=== PATIENT | female | born 1930 | race African-American/Black ===

== ENCOUNTER → 2016-05-21 | Outpatient (CLI) | payer OTHER ==
[2013-10-26 13:30] VITALS: BP 138/66
[2016-05-21 16:00] LABS: BASOPHILS # (AUTO) 0.1 X10^3/uL (0.0-0.1); BASOPHILS % (AUTO) 0.8 % (0.2-1.0); EOSINOPHILS # (AUTO) 0.1 x10^3/uL (0.0-0.2); EOSINOPHILS % (AUTO) 1.5 % (0.9-2.9); HEMATOCRIT 33.2 % (36.0-47.0); HEMOGLOBIN 10.8 g/dL (12.0-16.0); LYMPHOCYTES # (AUTO) 3.8 X10^3/uL (1.3-2.9); LYMPHOCYTES % (AUTO) 46.3 % (21.0-51.0); MEAN CORPUSCULAR HEMOGLOBIN 29.1 pg (27.0-34.0); MEAN CORPUSCULAR HGB CONC 32.6 g/dL (33.0-35.0); MEAN CORPUSCULAR VOLUME 89.1 fL (80.0-100.0); MEAN PLATELET VOLUME 7.9 fL (7.4-11.0); MONOCYTES # (AUTO) 0.7 x10^3/uL (0.3-0.8); MONOCYTES % (AUTO) 8.7 % (0.0-13.0); NEUTROPHILS # (AUTO) 3.5 x10^3/uL (2.2-4.8); NEUTROPHILS % (AUTO) 42.7 % (42.0-75.0); PLATELET COUNT 223 X10^3/uL (150.0-450.0); RED BLOOD COUNT 3.72 X10^6/uL (3.5-5.4); RED CELL DISTRIBUTION WIDTH 12.6 % (11.6-16.5); WHITE BLOOD COUNT 8.3 X10^3/uL (3.6-10.0)
[2016-05-21 16:18] LABS: ALBUMIN 3.9 g/dL (3.4-5.0); BLOOD UREA NITROGEN 32 mg/dL (7-18); CARBON DIOXIDE 23.9 mmol/L (21-32); CHLORIDE 109 mmol/L (98-107); CHOL/HDL RATIO 3.8 (0.0-5.0); CHOLESTEROL 129 mg/dL (0-200); CREATININE 2.53 mg/dL (0.55-1.02); GLUCOSE 84 mg/dL (65-99); HDL CHOLESTEROL 34 mg/dL (40-60); PHOSPHORUS 4.3 mg/dL (2.6-4.7); SODIUM 145 mmol/L (136-145); TRIGLYCERIDES 129 mg/dL (0-150); eGFR BLACK RACES 23 (>60); eGFR NON BLACK RACES 19 (>60)
== END ==
LOC: LAB 15:28
PROVIDERS: ATTEND Internal Medicine
DX: I12.9 Hypertensive chronic kidney disease with stage 1 through stage 4 chronic kidney disease, or unspecified chronic kidney disease (principal); N18.4 Chronic kidney disease, stage 4 (severe)
CPT/HCPCS: 36415; 80061; 80069; 85025

== ENCOUNTER → 2016-08-06 | Outpatient (CLI) | payer OTHER ==
[2013-10-26 13:30] VITALS: BP 138/66
[2016-08-06 14:21] LABS: ALBUMIN 3.6 g/dL (3.4-5.0); BLOOD UREA NITROGEN 29 mg/dL (7-18); CALCIUM 9.3 mg/dL (8.5-10.1); CARBON DIOXIDE 24.9 mmol/L (21-32); CHLORIDE 107 mmol/L (98-107); CREATININE 2.62 mg/dL (0.55-1.02); GLUCOSE 92 mg/dL (65-99); PHOSPHORUS 4.1 mg/dL (2.6-4.7); SODIUM 143 mmol/L (136-145); URIC ACID 6.6 mg/dL (2.6-6.0); eGFR BLACK RACES 22 (>60); eGFR NON BLACK RACES 18 (>60)
== END ==
LOC: LAB 13:43
PROVIDERS: ATTEND Internal Medicine
DX: I12.9 Hypertensive chronic kidney disease with stage 1 through stage 4 chronic kidney disease, or unspecified chronic kidney disease (principal); N18.4 Chronic kidney disease, stage 4 (severe); N28.89 Other specified disorders of kidney and ureter
CPT/HCPCS: 36415; 80069; 84550

== ENCOUNTER 2016-09-20 07:55 | Day surgery (SDC) | payer OTHER ==
[2016-09-20] MEDS ORDERED: D5 LR 1000 ML 1,000 ML IV ONE (08:08)
[2016-09-20] MEDS ORDERED: DIPRIVAN VIAL 20 ML ONE (09:59)
[2016-09-20 10:36] VITALS: BP 122/64
== END 2016-09-20 10:36 | disposition home or self-care (01) ==
LOC: SURG1 07:55
PROVIDERS: ATTEND Internal Medicine Gastroenterology
PROC: 0DB68ZX Excision of Stomach, Via Natural or Artificial Opening Endoscopic, Diagnostic (ICD-10-PCS; principal; 2016-09-20 09:45)
PROC: 0DJ08ZZ Inspection of Upper Intestinal Tract, Via Natural or Artificial Opening Endoscopic (ICD-10-PCS; principal; 2016-09-20 09:45)
PROC: 0D757ZZ Dilation of Esophagus, Via Natural or Artificial Opening (ICD-10-PCS; principal; 2016-09-20 09:45)
DX: R13.19 Other dysphagia (principal); R10.13 Epigastric pain; K21.9 Gastro-esophageal reflux disease without esophagitis; K22.4 Dyskinesia of esophagus; K22.2 Esophageal obstruction; K44.9 Diaphragmatic hernia without obstruction or gangrene; K29.60 Other gastritis without bleeding
CPT/HCPCS: 99100; A4217; J3490; J7120

== ENCOUNTER → 2016-10-02 | Outpatient (CLI) | payer OTHER ==
[2016-09-20 10:36] VITALS: BP 122/64
[2016-10-02 09:24] LABS: BASOPHILS # (AUTO) 0.1 X10^3/uL (0.0-0.1); BASOPHILS % (AUTO) 0.9 % (0.2-1.0); EOSINOPHILS # (AUTO) 0.1 x10^3/uL (0.0-0.2); EOSINOPHILS % (AUTO) 2.1 % (0.9-2.9); HEMATOCRIT 32.3 % (36.0-47.0); HEMOGLOBIN 10.7 g/dL (12.0-16.0); LYMPHOCYTES % (AUTO) 46.7 % (21.0-51.0); MEAN CORPUSCULAR HEMOGLOBIN 29.5 pg (27.0-34.0); MEAN CORPUSCULAR HGB CONC 33.1 g/dL (33.0-35.0); MEAN CORPUSCULAR VOLUME 89.1 fL (80.0-100.0); MEAN PLATELET VOLUME 8.1 fL (7.4-11.0); MONOCYTES # (AUTO) 0.6 x10^3/uL (0.3-0.8); MONOCYTES % (AUTO) 9.9 % (0.0-13.0); NEUTROPHILS # (AUTO) 2.6 x10^3/uL (2.2-4.8); NEUTROPHILS % (AUTO) 40.4 % (42.0-75.0); PLATELET COUNT 214 X10^3/uL (150.0-450.0); RED BLOOD COUNT 3.62 X10^6/uL (3.5-5.4); RED CELL DISTRIBUTION WIDTH 12.5 % (11.6-16.5); WHITE BLOOD COUNT 6.5 X10^3/uL (3.6-10.0)
[2016-10-02 09:29] LABS: BILIRUBIN,URINE NEGATIVE (NEGATIVE); BLOOD/HEMOGLOBIN,URINE 1+ (NEGATIVE); GLUCOSE, URINE NEGATIVE (NEGATIVE); KETONES,URINE NEGATIVE (NEGATIVE); LEUKOCYTE ESTERASE ,URINE 3+ (NEGATIVE); NITRITES,URINE NEGATIVE (NEGATIVE); PROTEIN,URINE 2+ (NEGATIVE); UROBILINOGEN,URINE NORMAL (NORMAL)
[2016-10-02 09:43] LABS: ALBUMIN 3.5 g/dL (3.4-5.0); BLOOD UREA NITROGEN 24 mg/dL (7-18); CALCIUM 8.8 mg/dL (8.5-10.1); CARBON DIOXIDE 25.2 mmol/L (21-32); CHLORIDE 109 mmol/L (98-107); CHOL/HDL RATIO 3.9 (0.0-5.0); CHOLESTEROL 146 mg/dL (0-200); CREATININE 2.48 mg/dL (0.55-1.02); GLUCOSE 95 mg/dL (65-99); HDL CHOLESTEROL 37 mg/dL (40-60); SODIUM 143 mmol/L (136-145); TRIGLYCERIDES 115 mg/dL (0-150); eGFR BLACK RACES 24 (>60); eGFR NON BLACK RACES 20 (>60)
[2016-10-02 10:13] LABS: APPEARANCE,URINE HAZY (CLEAR); BACTERIA,URINE TRACE /HPF (NEGATIVE); COLOR,URINE YELLOW (YELLOW); MUCUS,URINE FEW /HPF (NEGATIVE); SQUAMOUS EPITHELIAL CELL,UR NEGATIVE /HPF (NEGATIVE)
== END ==
LOC: LAB 07:57
PROVIDERS: ATTEND Internal Medicine
DX: I12.9 Hypertensive chronic kidney disease with stage 1 through stage 4 chronic kidney disease, or unspecified chronic kidney disease (principal); N18.4 Chronic kidney disease, stage 4 (severe)
CPT/HCPCS: 36415; 80061; 80069; 81001; 85025

== ENCOUNTER → 2016-11-13 | Outpatient (CLI) | payer OTHER ==
[2016-11-13 14:53] LABS: BASOPHILS % (AUTO) 0.7 % (0.2-1.0); EOSINOPHILS # (AUTO) 0.1 x10^3/uL (0.0-0.2); EOSINOPHILS % (AUTO) 1.6 % (0.9-2.9); HEMATOCRIT 31.2 % (36.0-47.0); HEMOGLOBIN 10.6 g/dL (12.0-16.0); LYMPHOCYTES # (AUTO) 3.1 X10^3/uL (1.3-2.9); LYMPHOCYTES % (AUTO) 46.2 % (21.0-51.0); MEAN CORPUSCULAR HEMOGLOBIN 29.9 pg (27.0-34.0); MEAN CORPUSCULAR HGB CONC 33.9 g/dL (33.0-35.0); MEAN CORPUSCULAR VOLUME 88.2 fL (80.0-100.0); MEAN PLATELET VOLUME 7.8 fL (7.4-11.0); MONOCYTES # (AUTO) 0.7 x10^3/uL (0.3-0.8); MONOCYTES % (AUTO) 10.7 % (0.0-13.0); NEUTROPHILS # (AUTO) 2.7 x10^3/uL (2.2-4.8); NEUTROPHILS % (AUTO) 40.8 % (42.0-75.0); PLATELET COUNT 212 X10^3/uL (150.0-450.0); RED BLOOD COUNT 3.54 X10^6/uL (3.5-5.4); RED CELL DISTRIBUTION WIDTH 12.7 % (11.6-16.5); WHITE BLOOD COUNT 6.6 X10^3/uL (3.6-10.0)
[2016-11-13 15:08] LABS: ALANINE AMINOTRANSFERASE 31 Units/L (12-78); ALBUMIN 3.6 g/dL (3.4-5.0); ALKALINE PHOSPHATASE 84 Units/L (46-116); ASPARTATE AMINO TRANSFERASE 34 Units/L (15-37); BLOOD UREA NITROGEN 32 mg/dL (7-18); CALCIUM 8.6 mg/dL (8.5-10.1); CARBON DIOXIDE 22.8 mmol/L (21-32); CHLORIDE 107 mmol/L (98-107); COR NA(FOR HYPERGLY) 141 mmol/L (136-145); CREATININE 2.53 mg/dL (0.55-1.02); LACTATE DEHYDROGENASE 226 Units/L (81-234); SODIUM 140 mmol/L (136-145); TOTAL PROTEIN 7.7 g/dL (6.4-8.2); eGFR BLACK RACES 23 (>60); eGFR NON BLACK RACES 19 (>60)
== END ==
LOC: LAB 14:19
PROVIDERS: ATTEND Internal Medicine Hematology & Oncology
DX: C85.89 Other specified types of non-Hodgkin lymphoma, extranodal and solid organ sites (principal)
CPT/HCPCS: 36415; 80053; 83615; 85025

== ENCOUNTER → 2017-01-01 | Outpatient (CLI) | payer OTHER ==
[2017-01-01 08:22] LABS: BASOPHILS % (AUTO) 0.2 % (0.2-1.0); EOSINOPHILS # (AUTO) 0.1 x10^3/uL (0.0-0.2); EOSINOPHILS % (AUTO) 1.6 % (0.9-2.9); HEMATOCRIT 32.7 % (36.0-47.0); HEMOGLOBIN 10.7 g/dL (12.0-16.0); LYMPHOCYTES # (AUTO) 2.7 X10^3/uL (1.3-2.9); LYMPHOCYTES % (AUTO) 43.9 % (21.0-51.0); MEAN CORPUSCULAR HGB CONC 32.8 g/dL (33.0-35.0); MEAN CORPUSCULAR VOLUME 88.6 fL (80.0-100.0); MEAN PLATELET VOLUME 7.5 fL (7.4-11.0); MONOCYTES # (AUTO) 0.5 x10^3/uL (0.3-0.8); MONOCYTES % (AUTO) 8.6 % (0.0-13.0); NEUTROPHILS # (AUTO) 2.8 x10^3/uL (2.2-4.8); NEUTROPHILS % (AUTO) 45.7 % (42.0-75.0); PLATELET COUNT 237 X10^3/uL (150.0-450.0); RED CELL DISTRIBUTION WIDTH 12.4 % (11.6-16.5); WHITE BLOOD COUNT 6.1 X10^3/uL (3.6-10.0)
[2017-01-01 09:10] LABS: ALBUMIN 3.6 g/dL (3.4-5.0); BLOOD UREA NITROGEN 35 mg/dL (7-18); CALCIUM 9.4 mg/dL (8.5-10.1); CARBON DIOXIDE 24.2 mmol/L (21-32); CHLORIDE 110 mmol/L (98-107); CHOL/HDL RATIO 3.3 (0.0-5.0); CHOLESTEROL 131 mg/dL (0-200); CREATININE 2.77 mg/dL (0.55-1.02); HDL CHOLESTEROL 40 mg/dL (40-60); PHOSPHORUS 4.5 mg/dL (2.6-4.7); SODIUM 145 mmol/L (136-145); TRIGLYCERIDES 95 mg/dL (0-150); URIC ACID 6.7 mg/dL (2.6-6.0); eGFR BLACK RACES 21 (>60); eGFR NON BLACK RACES 17 (>60)
== END ==
LOC: LAB 07:55
PROVIDERS: ATTEND Internal Medicine
DX: I12.9 Hypertensive chronic kidney disease with stage 1 through stage 4 chronic kidney disease, or unspecified chronic kidney disease (principal); N18.4 Chronic kidney disease, stage 4 (severe); E78.4 Other hyperlipidemia
CPT/HCPCS: 36415; 80061; 80069; 84550; 85025

== ENCOUNTER → 2017-01-03 | Outpatient (CLI) | payer OTHER ==
--- NOTE | 2017-01-07 09:42 | VAS ---
CAROTID ULTRASOUND CLINICAL INDICATION: Syncope PROCEDURE: Pulsed wave and color-flow duplex imaging was utilized to evaluate the extracranial caroti d arteries. COMPARISON: None FINDINGS: Right carotid: Plaque at the bifurcation. No hemodynamically significant stenosis involving the right carotid artery . The velocities are as follows: Distal CCA peak systolic velocity 64 cm/sec and peak end-diastolic velocity 12 cm/sec, ICA peak systo lic velocity 88 cm/sec and peak end-diastolic velocity 0 cm/sec. Flow within the right vertebral and right ECA is directed antegrade. Left carotid: Plaque at the bifurcation. The velocities are as follows: Distal CCA peak systolic velocity 59 cm/sec and peak end-diastolic velocity 13 cm/sec, ICA peak systo lic velocity 128 cm/sec and peak end-diastolic velocity 32 cm/sec. Flow within the left vertebral and left ECA is directed antegrade. IMPRESSION: 1. Normal peak systolic velocity corresponds to a less than 50% diameter stenosis of the right ICA. 2. Mildly increased peak systolic velocity corresponds to a 50-70 % diameter stenosis of the left ICA . Reported By:
== END ==
LOC: RAD 12:03
PROVIDERS: ATTEND Physician Assistant
DX: I65.23 Occlusion and stenosis of bilateral carotid arteries (principal)
CPT/HCPCS: 93880

== ENCOUNTER → 2017-05-23 | Outpatient (CLI) | payer OTHER ==
[2017-05-23 14:52] LABS: BASOPHILS % (AUTO) 0.4 % (0.2-1.0); EOSINOPHILS # (AUTO) 0.1 x10^3/uL (0.0-0.2); EOSINOPHILS % (AUTO) 1.7 % (0.9-2.9); HEMATOCRIT 30.9 % (36.0-47.0); HEMOGLOBIN 10.3 g/dL (12.0-16.0); LYMPHOCYTES # (AUTO) 3.4 X10^3/uL (1.3-2.9); LYMPHOCYTES % (AUTO) 51.8 % (21.0-51.0); MEAN CORPUSCULAR HEMOGLOBIN 29.3 pg (27.0-34.0); MEAN CORPUSCULAR HGB CONC 33.2 g/dL (33.0-35.0); MEAN CORPUSCULAR VOLUME 88.1 fL (80.0-100.0); MEAN PLATELET VOLUME 7.8 fL (7.4-11.0); MONOCYTES # (AUTO) 0.8 x10^3/uL (0.3-0.8); MONOCYTES % (AUTO) 12.1 % (0.0-13.0); NEUTROPHILS # (AUTO) 2.3 x10^3/uL (2.2-4.8); PLATELET COUNT 242 X10^3/uL (150.0-450.0); RED BLOOD COUNT 3.51 X10^6/uL (3.5-5.4); RED CELL DISTRIBUTION WIDTH 12.5 % (11.6-16.5); WHITE BLOOD COUNT 6.6 X10^3/uL (3.6-10.0)
[2017-05-23 15:00] LABS: ALANINE AMINOTRANSFERASE 55 Units/L (12-78); ALBUMIN 3.8 g/dL (3.4-5.0); ALKALINE PHOSPHATASE 106 Units/L (46-116); ASPARTATE AMINO TRANSFERASE 47 Units/L (15-37); BLOOD UREA NITROGEN 42 mg/dL (7-18); CALCIUM 8.7 mg/dL (8.5-10.1); CARBON DIOXIDE 25.1 mmol/L (21-32); CHLORIDE 105 mmol/L (98-107); CREATININE 2.75 mg/dL (0.55-1.02); LACTATE DEHYDROGENASE 223 Units/L (81-234); SODIUM 140 mmol/L (136-145); TOTAL PROTEIN 8.7 g/dL (6.4-8.2); eGFR BLACK RACES 21 (>60); eGFR NON BLACK RACES 17 (>60)
== END ==
LOC: LAB 14:18
PROVIDERS: ATTEND Internal Medicine Hematology & Oncology
DX: C85.89 Other specified types of non-Hodgkin lymphoma, extranodal and solid organ sites (principal)
CPT/HCPCS: 36415; 80053; 83615; 85025

== ENCOUNTER → 2017-07-09 | Outpatient (CLI) | payer OTHER ==
[2017-07-09 14:49] LABS: BASOPHILS # (AUTO) 0.1 X10^3/uL (0.0-0.1); BASOPHILS % (AUTO) 0.7 % (0.2-1.0); EOSINOPHILS # (AUTO) 0.1 x10^3/uL (0.0-0.2); EOSINOPHILS % (AUTO) 1.2 % (0.9-2.9); HEMATOCRIT 29.8 % (36.0-47.0); LYMPHOCYTES # (AUTO) 3.4 X10^3/uL (1.3-2.9); LYMPHOCYTES % (AUTO) 42.8 % (21.0-51.0); MEAN CORPUSCULAR HEMOGLOBIN 29.5 pg (27.0-34.0); MEAN CORPUSCULAR HGB CONC 33.6 g/dL (33.0-35.0); MEAN CORPUSCULAR VOLUME 87.8 fL (80.0-100.0); MONOCYTES # (AUTO) 0.7 x10^3/uL (0.3-0.8); MONOCYTES % (AUTO) 8.8 % (0.0-13.0); NEUTROPHILS # (AUTO) 3.8 x10^3/uL (2.2-4.8); NEUTROPHILS % (AUTO) 46.5 % (42.0-75.0); PLATELET COUNT 231 X10^3/uL (150.0-450.0); RED BLOOD COUNT 3.39 X10^6/uL (3.5-5.4); RED CELL DISTRIBUTION WIDTH 12.5 % (11.6-16.5); WHITE BLOOD COUNT 8.1 X10^3/uL (3.6-10.0)
[2017-07-09 14:57] LABS: ALBUMIN 3.8 g/dL (3.4-5.0); BLOOD UREA NITROGEN 33 mg/dL (7-18); CALCIUM 8.8 mg/dL (8.5-10.1); CARBON DIOXIDE 27.1 mmol/L (21-32); CHLORIDE 105 mmol/L (98-107); CREATININE 2.64 mg/dL (0.55-1.02); PHOSPHORUS 2.9 mg/dL (2.6-4.7); SODIUM 139 mmol/L (136-145); URIC ACID 5.7 mg/dL (2.6-6.0); eGFR BLACK RACES 22 (>60); eGFR NON BLACK RACES 18 (>60)
== END ==
LOC: LAB 14:24
PROVIDERS: ATTEND Internal Medicine
DX: I12.9 Hypertensive chronic kidney disease with stage 1 through stage 4 chronic kidney disease, or unspecified chronic kidney disease (principal); N18.3 Chronic kidney disease, stage 3 (moderate)
CPT/HCPCS: 36415; 80069; 84550; 85025

== ENCOUNTER 2019-04-29 14:16 | Inpatient (IN) ==
[2019-04-29] MEDS ORDERED: NS 500 ML IV 500 ML IV ONE (16:57)
[2019-04-29] MEDS ORDERED: PROVENTIL NEB TX 0.083% 2.5MG/ 3ML NEB PRN (17:08)
[2019-04-29 17:56] LABS: AMMONIA 15 umol/L (11-32)
[2019-04-29 18:09] LABS: ALANINE AMINOTRANSFERASE 173 Units/L (12-78); ALBUMIN 2.8 g/dL (3.4-5.0); AMYLASE 126 Units/L (25-115); ASPARTATE AMINO TRANSFERASE 241 Units/L (15-37); BLOOD UREA NITROGEN 53 mg/dL (7-18); CARBON DIOXIDE 20.9 mmol/L (21-32); CHLORIDE 98 mmol/L (98-107); CREATININE 3.68 mg/dL (0.55-1.02); LIPASE 805 Units/L (73-393); SODIUM 131 mmol/L (136-145); TOTAL PROTEIN 7.6 g/dL (6.4-8.2); eGFR NON BLACK RACES 12 (>60)
[2019-04-29 18:20] LABS: ALKALINE PHOSPHATASE 1058 Units/L (46-116)
[2019-04-29 19:27] LABS: BASOPHILS % (AUTO) 0 % (0.2-1.0); WHITE BLOOD COUNT 7.2 X10^3/uL (3.6-10.0)
[2019-04-29] MEDS: NS 1000 ML 1,000 ML IV SCH (19:27)
[2019-04-29 20:06] LABS: EOSINOPHILS % (AUTO) 0.5 % (0.9-2.9); HEMATOCRIT 22.2 % (36.0-47.0); HEMOGLOBIN 7.4 g/dL (12.0-16.0); MEAN CORPUSCULAR HEMOGLOBIN 29.4 pg (27.0-34.0); MEAN CORPUSCULAR HGB CONC 33.5 g/dL (33.0-35.0); MEAN CORPUSCULAR VOLUME 87.7 fL (80.0-100.0); MEAN PLATELET VOLUME 8.1 fL (7.4-11.0); MONOCYTES # (AUTO) 0.6 x10^3/uL (0.3-0.8); MONOCYTES % (AUTO) 7.8 % (0.0-13.0); NEUTROPHILS # (AUTO) 2.6 x10^3/uL (2.2-4.8); NEUTROPHILS % (AUTO) 35.7 % (42.0-75.0); PLATELET COUNT 288 X10^3/uL (150.0-450.0); RED BLOOD COUNT 2.53 X10^6/uL (3.5-5.4)
[2019-04-29 20:31] LABS: ANISOCYTOSIS SLIGHT; PLATELET MORPHOLOGY COMMENT NORMAL (NORMAL); TARGET CELLS FEW
[2019-04-29 21:30] VITALS: BMI 20.7
[2019-04-30] MEDS: NS 1000 ML 1,000 ML IV SCH (05:30)
[2019-04-30 06:53] LABS: BASOPHILS % (AUTO) 0 % (0.2-1.0); EOSINOPHILS # (AUTO) 0.1 x10^3/uL (0.0-0.2); EOSINOPHILS % (AUTO) 1.9 % (0.9-2.9); HEMATOCRIT 21.6 % (36.0-47.0); HEMOGLOBIN 7.4 g/dL (12.0-16.0); LYMPHOCYTES # (AUTO) 3.9 X10^3/uL (1.3-2.9); LYMPHOCYTES % (AUTO) 59.3 % (21.0-51.0); MEAN CORPUSCULAR HEMOGLOBIN 29.9 pg (27.0-34.0); MEAN CORPUSCULAR HGB CONC 34.3 g/dL (33.0-35.0); MEAN PLATELET VOLUME 8.8 fL (7.4-11.0); MONOCYTES % (AUTO) 15.5 % (0.0-13.0); NEUTROPHILS # (AUTO) 1.5 x10^3/uL (2.2-4.8); NEUTROPHILS % (AUTO) 23.3 % (42.0-75.0); PLATELET COUNT 299 X10^3/uL (150.0-450.0); RED BLOOD COUNT 2.49 X10^6/uL (3.5-5.4); RED CELL DISTRIBUTION WIDTH 18.5 % (11.6-16.5); WHITE BLOOD COUNT 6.5 X10^3/uL (3.6-10.0)
[2019-04-30 07:10] LABS: ALANINE AMINOTRANSFERASE 142 Units/L (12-78); ALBUMIN 2.2 g/dL (3.4-5.0); ALKALINE PHOSPHATASE 938 Units/L (46-116); ASPARTATE AMINO TRANSFERASE 195 Units/L (15-37); BLOOD UREA NITROGEN 45 mg/dL (7-18); CALCIUM 8.7 mg/dL (8.5-10.1); CARBON DIOXIDE 20.9 mmol/L (21-32); CHLORIDE 104 mmol/L (98-107); COR CA(FOR HYPOALB) 10.1 mg/dL (8.5-10.1); CREATININE 3.16 mg/dL (0.55-1.02); SODIUM 134 mmol/L (136-145); TOTAL PROTEIN 6.4 g/dL (6.4-8.2); eGFR NON BLACK RACES 15 (>60)
[2019-04-30 07:36] LABS: HYPOCHROMASIA 1+; PLATELET MORPHOLOGY COMMENT NORMAL (NORMAL)
--- NOTE | 2019-04-30 08:21 | US ---
HISTORYELEVATED LFT'S, HEPATIC/RENAL SYNDROMESTUDYUltrasound of the abdomenCOMPARISONAugust 2018FINDINGSThe right lobe of the liver measures 17 cm sagittal length without focal mass. There is intrahepatic biliary dilatation. There is appropriate flow in the portal vein and in hepatic veins.The gallbladder is surgically absent. The common hepatic duct measures 2.54 cm maximum diameter.The right kidney measures 9.3 x 3.8 cm with cortical thickness of 8.7 mm, without hydronephrosis. Renal cortex is echogenic. There are multiple cysts, the largest measuring 4 x 3 x 3 cm. This is toward the midpole.The left kidney measures 7 x 4 x 4 cm with cortical thickness of 1.16 cm. There is a 1 cm cyst centrally in the cortex. There is increased echogenicity of left renal cortex as well.The spleen measures 11 x 4 x 3 cm without mass.The pancreatic duct is dilated to 1.12 cm. There is no pancreatic mass demonstrated.The IVC is patent. There is no free fluid. There is no aortic aneurysm.IMPRESSION1. New severe pancreatic duct dilatation in marked increase in biliary dilatation since September 2018 implying distal obstruction. No stone demonstrated. Gallbladder is surgically absent.2. Renal cysts and echogenic renal cortex compatible with diffuse renal cortical disease. Kidneys are atrophic.Electronically signed by: PONCE GERARDO (Apr 30, 2019 08:19:26)
--- NOTE | 2019-04-30 08:33 | CT ---
HISTORYCT of abdomen and pelvis without contrast. Sagittal and coronal reformations were provided. Dose reduction techniques were utilized.STUDYNoneCOMPARISONNoneFINDINGSThe visualized lung bases are clear of active disease. There is severe intrahepatic biliary tension. The common bile duct measures up to 3.4 cm in diameter. The g allbladder is surgically absent. No radiopaque distal common duct stone is demonstrated. There is virgen creatic duct dilatation. No pancreatic mass is visualized. The kidneys are small with cysts. 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 There is a hyperdense 1.26 cm cyst in the mid cortex of the left kidney. The adrenal glands and spleen are unremarkable. There is severe sigmoid d iverticulosis. There is no aortic aneurysm or ascites or adenopathy. The uterus is absent. There is n o adnexal mass. There is a small amount of free air within the urinary bladder. The appendix is thomas l. There is no significant bony abnormality.IMPRESSIONMassive biliary dilatation, cause not discerned , status post cholecystectomy. Consider ERCP.Small kidneys with renal cystsSmall amount of free air w ithin the urinary bladder, questionably iatrogenic.DiverticulosisElectronically signed by: PONCE CURIEL (Apr 30, 2019 08:32:48)
[2019-04-30] MEDS ORDERED: ZOFRAN INJ 4 MG VIAL IVP PRN (10:00)
[2019-04-30] MEDS ORDERED: STERILE WATER IRRIGATION IR ONE (13:03)
[2019-04-30] MEDS ORDERED: DIPRIVAN VIAL 20 ML ONE (13:08)
[2019-04-30 15:34] VITALS: BP 169/75
--- NOTE | 2019-04-30 17:53 | DR.UPDATE ---
H&P Update History and Physical Update: History and Physical reviewed and patient examined. Changes noted: Yes with the following: HAS BEE SEEN IN THE OFFICE FOR COMPLAINTS OF WEAKNESS, NAUSEA, AND VOMITING. WE OBTAINED LABS ONE DAY PRIOR AND SHE IS HERE FOR FOLLOW UP TODAY. SHE CONTINUES WITH SYMPTOMS. OUTPATIENT LABS REVEALED THE FOLLOWING ABNORMAL LAB VALUES: RBC 2.75, HGB 7.7, HCT 24.2, BUN 53, CREATININE 3.61, POTASSIUM 5.3, CARBON DIOXIDE 16, ALBUMIN 3.3, TOTAL BILIRUBIN 12.7, ALK PHOS 961, AST 219, ALT 149, PHOSPHORUS 4.6, URIC ACID 7.6. SHE WAS ADMITTED FOR FURTHER EVALUATION AND TREATMENT OF HEPATIC RENAL SYNDROME. ON ARRIVAL, VITALS WERE 98.0-84-20-98%-145/66. LABS WERE OBTAINED. ABNORMAL LAB VALUES INCLUDE THE FOLLOWING: RBC 2.53, HGB 7.4, HCT 22.2, SODIUM 131, CARBON DIOXIDE 20.9, BUN 53, CREATININE 3.68, TOTAL BILI 13.80, AST 241, ALT 173, ALK PHOS 1058, ALBUMIN 2.8, AMYLASE 126, LIPASE 805. AN ABDOMEN ULTRASOUND WAS OBTAINED THIS MORNING AND REVEALED: New severe pancreatic duct dilatation in marked increase in biliary dilatation since September 2018 implying distal obstruction. No stone demonstrated. Gallbladder is surgically absent. Renal cysts and echogenic renal cortex compatible with diffuse renal cortical disease. Kidneys are atrophic. AN ABDOMEN/PELVIS CT WITHOUT CONTRAST WAS OBTAINED AND REVEALED: Massive biliary dilatation, cause not discerned, status post cholecystectomy. Consider ERCP. Small kidneys with renal cysts. Small amount of free air within the urinary bladder, questionably iatrogenic. Diverticulosis. SHE WAS GIVEN A 500ML NORMAL SALINE BOLUS, THEN FLUIDS WERE STARTED AT 80 ML/HR. WE CONSULTED WITH . HE PLANS FOR AN EGD TODAY. SHE MAY ALSO REQUIRE A ERCP. IF HE FEELS THIS IS NECESSARY, WE WILL TRANSFER TO A TERTIARY CARE CENTER. OTHERWISE, WE WILL FOLLOW UP WITH LABS AND CONTINUE TO MONITOR. Prescription drug monitoring program results: PDMP was not reviewed H&P Reviewed: No Patient was examined?: No
== END 2019-04-30 16:40 | disposition short-term general hospital (02) | DRG 441 ==
LOC: MED/SURG 16:13
PROVIDERS: ADMIT Internal Medicine; ATTEND Internal Medicine
DX: K21.9 Gastro-esophageal reflux disease without esophagitis; N18.4 Chronic kidney disease, stage 4 (severe); E03.8 Other specified hypothyroidism; R11.2 Nausea with vomiting, unspecified; K52.89 Other specified noninfective gastroenteritis and colitis; I12.9 Hypertensive chronic kidney disease with stage 1 through stage 4 chronic kidney disease, or unspecified chronic kidney disease; K20.8 Other esophagitis; K29.70 Gastritis, unspecified, without bleeding; R13.11 Dysphagia, oral phase; K44.9 Diaphragmatic hernia without obstruction or gangrene; K76.7 Hepatorenal syndrome; K83.1 Obstruction of bile duct; R53.1 Weakness; D63.1 Anemia in chronic kidney disease
CPT/HCPCS: 36415; 74176; 76700; 80053; 82140; 82150; 82378; 83690; 85025; 86301; 86316; 94760; 99100; A4216; A4217; A4222; J7030; J7040

== ENCOUNTER 2019-06-10 11:18 | Inpatient (IN) ==
--- NOTE | 2019-06-10 11:37 | DR.GENAD ---
HPI Time Seen Time Seen by Provider: 06/10/19 11:29 PCP Primary Care Physician: CHRIS Complaint/Symptoms Chief Complaint Doctors Comments: An 89 y/o female presenting with drainage from a percutaneous tube. on the Rt. side of her abdomen. I understand she has a hx. of pancreatic cancer. She couldn't say when the onset of drainage was. Chief Complaint:: PT. HAD A DRAIN TUBE PLACED INTO COMMON BILE DUCT FOR PANCREATIC CANCER PER DR. MEAD. DRAINAGE TUBE IS LEAKING. FOUL ODOR NOTED. COVID-19 Coronavirus risk:travel/contact w/high risk person: No Has patient experienced Coronavirus symptoms: No Nurses notes reviewed Nurses Notes Review: Yes Source History Provided: Patient Mode of Arrival Mode of Arrival: Wheelchair Timing Onset of Chief Complaint: 06/10/19 Modifying Factors Worsens:: nothing Improves:: nothing PMH PMH Past Medical History: Yes Past Medical History: Anemia, COPD, Hypertension and Hypothyroidism Past Medical History Comment: PANCREATIC CANCER Past Surgical History: Yes Surgical History: Appendectomy, Cholecystectomy and Hysterectomy Family History History of Family Medical Conditions: No Social History Does patient currently use any type of tobacco product: No Have you used tobacco products in the last 12 months: No Type of Tobacco Use: None Does any household member use tobacco: No Alcohol Use: None Do you use any recreational Drugs:: No Lives With: Family Lives Where: Home Travel Risk Coronavirus risk:travel/contact w/high risk person: No Has patient experienced Coronavirus symptoms: No Infectious screening In the last 2 months have you had wt loss of >10#?: NO Have you had fever, night sweats or hemotysis?: No Have you traveled outside the country in the last 6 months?: No Isolation: Standard ROS Review of Systems Constitutional: No Symptoms Reported Eyes: No Symptoms Reported ENTM: No Symptoms Reported Respiratoy: No Symptoms Reported Cardiovascular: No Symptoms Reported Gastrointestinal/Abdominal: See HPI Genitourinary: No Symptoms Reported Neurological: No Symptoms Reported Musculoskeletal: No Symptoms Reported Integumentary: No Symptoms Reported Hematologic/Lymphatic: No Symptoms Reported Endocrine: No Symptoms Reported Psychiatric: No Symptoms Reported All Other Systems: Reviewed and Negative PE Vital Signs Vitals: Temperature 97.9 F Pulse Rate 81 Respiratory Rate 17 Blood Pressure [Left Arm] 145/66 Blood Pressure [Right Arm] 169/75 Blood Pressure 135/63 O2 Sat by Pulse Oximetry 95 General Limitations: No Limitations General Appearance: Alert and In No Apparent Distress Head Head Exam: Normal Inspection, Atraumatic and Normocephalic Eyes Eye exam: Normal Appearance and EOMI ENT ENT Exam: Normal Exam, Normal Oropharynx and Mucous Membranes Moist Neck Neck Exam: Normal Inspection, Full ROM and Trachea Midline Chest Chest Inspection: Normal Inspection and Symmetric Chest Wall Rise Respiratory Respiratory Exam: Normal Lung Sounds Bilat Cardiovascular Cardiovascular Exam: Regular Rate, Normal Rhythm, Normal Heart Sounds, +S1 and +S2 Abdominal Exam Abdominal Exam: Normal Bowel Sounds, Soft and Other (A dislodged percutaneous drainage noted in the RUQ, draining serosanguinous drain. ) Extremities Extremities Exam: Normal Inspection and Full ROM Back Back Exam: Normal Inspection and Full ROM Neurologic Neurological Exam: Alert and Oriented X3 Psychiatric Psychiatric Exam: Normal Affect and Normal Mood Skin Skin Exam: Dry and Normal Color COURSE Reevaluation 1st: Unchanged Education/Counseling Education/Counseling: Family, Education and Counseling Educated On: Treatment, Diagnosis, Prognosis and Needs for Follow Up ROR Labs Reviewed Laboratory Results Reviewed?: Yes Result Diagrams: 06/10/19 11:39 06/10/19 11:39 Laboratory: WBC 8.5 X10^3/uL (3.6-10.0) 06/10/19 11:39 RBC 2.40 X10^6/uL (3.5-5.4) L 06/10/19 11:39 Hgb 7.5 g/dL (12.0-16.0) L 06/10/19 11:39 Hct 22.3 % (36.0-47.0) L 06/10/19 11:39 MCV 92.6 fL (80.0-100.0) 06/10/19 11:39 MCH 31.4 pg (27.0-34.0) 06/10/19 11:39 MCHC 33.9 g/dL (33.0-35.0) 06/10/19 11:39 RDW 13.0 % (11.6-16.5) 06/10/19 11:39 Plt Count 274 X10^3/uL (150.0-450.0) 06/10/19 11:39 Plt Count Comment Adequate (ADEQUATE) 06/10/19 11:39 MPV 7.1 fL (7.4-11.0) L 06/10/19 11:39 Neut % (Auto) 58.3 % (42.0-75.0) 06/10/19 11:39 Lymph % (Auto) 28.8 % (21.0-51.0) 06/10/19 11:39 [place] % (Auto) 8.4 % (0.0-13.0) 06/10/19 11:39 Eos % (Auto) 3.8 % (0.9-2.9) H 06/10/19 11:39 Baso % (Auto) 0.7 % (0.2-1.0) 06/10/19 11:39 Neut # (Auto) 4.9 x10^3/uL (2.2-4.8) H 06/10/19 11:39 Lymph # (Auto) 2.5 X10^3/uL (1.3-2.9) 06/10/19 11:39 [place] # (Auto) 0.7 x10^3/uL (0.3-0.8) 06/10/19 11:39 Eos # (Auto) 0.3 x10^3/uL (0.0-0.2) H 06/10/19 11:39 Baso # (Auto) 0.1 X10^3/uL (0.0-0.1) 06/10/19 11:39 Absolute Nucleated RBC 0.0 /100WBC 06/10/19 11:39 Plt Morphology Comment Normal (NORMAL) 06/10/19 11:39 RBC Morphology Abnormal (NORMAL) A 06/10/19 11:39 Hypochromasia Slight A 06/10/19 11:39 Target Cells Few 06/10/19 11:39 Sodium 141 mmol/L (136-145) 06/10/19 11:39 Corrected Sodium TNP 06/10/19 11:39 Potassium 4.7 mmol/L (3.5-5.1) 06/10/19 11:39 Chloride 109 mmol/L (98-107) H 06/10/19 11:39 Carbon Dioxide 24.0 mmol/L (21-32) 06/10/19 11:39 BUN 56 mg/dL (7-18) H 06/10/19 11:39 Creatinine 3.62 mg/dL (0.55-1.02) H 06/10/19 11:39 Est GFR (MDRD) Af Amer 15 (>60) L 06/10/19 11:39 Est GFR (MDRD) Non-Af 13 (>60) L 06/10/19 11:39 Glucose 91 mg/dL (65-99) 06/10/19 11:39 Calcium 8.4 mg/dL (8.5-10.1) L 06/10/19 11:39 Corrected Calcium 9.9 mg/dL (8.5-10.1) 06/10/19 11:39 Total Bilirubin 0.70 mg/dL (0.2-1.0) 06/10/19 11:39 AST 20 Units/L (15-37) 06/10/19 11:39 ALT 12 Units/L (12-78) 06/10/19 11:39 Alkaline Phosphatase 95 Units/L (46-116) 06/10/19 11:39 Total Protein 7.5 g/dL (6.4-8.2) 06/10/19 11:39 Albumin 2.1 g/dL (3.4-5.0) L 06/10/19 11:39 Globulin 5.4 g/dL (2.5-4.5) H 06/10/19 11:39 Albumin/Globulin Ratio 0.4 Ratio (1.1-2.1) L 06/10/19 11:39 Opioid Opioid Risk Tool Age (José box if 16-45): No History of Preadolescent Sexual Abuse: No Total: 0 Total Score Risk Category: Low Risk Copyright: Rubens COHEN predicting aberrant behaviors Diagnosis Discharge Problem: Anemia in chronic illness, Obstructive jaundice, CKD (chronic kidney disease) stage 5, GFR less than 15 ml/min, Benign essential HTN Pancreatic cancer Qualifiers: Pancreatic malignancy location: unspecified Qualified Code(s): C25.9 - Malign ant neoplasm of pancreas, unspecified Hypothyroidism Qualifiers: Hypothyroidism type: due to acquired atrophy of thyroid Qualified Code(s): E03.4 - Atrophy of thyroid (acquired)
[2019-06-10 11:48] LABS: BASOPHILS # (AUTO) 0.1 X10^3/uL (0.0-0.1); BASOPHILS % (AUTO) 0.7 % (0.2-1.0); EOSINOPHILS # (AUTO) 0.3 x10^3/uL (0.0-0.2); EOSINOPHILS % (AUTO) 3.8 % (0.9-2.9); HEMATOCRIT 22.3 % (36.0-47.0); HEMOGLOBIN 7.5 g/dL (12.0-16.0); LYMPHOCYTES # (AUTO) 2.5 X10^3/uL (1.3-2.9); LYMPHOCYTES % (AUTO) 28.8 % (21.0-51.0); MEAN CORPUSCULAR HEMOGLOBIN 31.4 pg (27.0-34.0); MEAN CORPUSCULAR HGB CONC 33.9 g/dL (33.0-35.0); MEAN CORPUSCULAR VOLUME 92.6 fL (80.0-100.0); MEAN PLATELET VOLUME 7.1 fL (7.4-11.0); MONOCYTES # (AUTO) 0.7 x10^3/uL (0.3-0.8); MONOCYTES % (AUTO) 8.4 % (0.0-13.0); NEUTROPHILS # (AUTO) 4.9 x10^3/uL (2.2-4.8); NEUTROPHILS % (AUTO) 58.3 % (42.0-75.0); PLATELET COUNT 274 X10^3/uL (150.0-450.0); WHITE BLOOD COUNT 8.5 X10^3/uL (3.6-10.0)
[2019-06-10 12:03] LABS: ALANINE AMINOTRANSFERASE 12 Units/L (12-78); ALBUMIN 2.1 g/dL (3.4-5.0); ALKALINE PHOSPHATASE 95 Units/L (46-116); ASPARTATE AMINO TRANSFERASE 20 Units/L (15-37); BLOOD UREA NITROGEN 56 mg/dL (7-18); CALCIUM 8.4 mg/dL (8.5-10.1); CHLORIDE 109 mmol/L (98-107); COR CA(FOR HYPOALB) 9.9 mg/dL (8.5-10.1); CREATININE 3.62 mg/dL (0.55-1.02); SODIUM 141 mmol/L (136-145); TOTAL PROTEIN 7.5 g/dL (6.4-8.2); eGFR NON BLACK RACES 13 (>60)
[2019-06-10 12:06] LABS: HYPOCHROMASIA SLIGHT; PLATELET MORPHOLOGY COMMENT NORMAL (NORMAL); TARGET CELLS FEW
[2019-06-10] MEDS: NS 1000 ML 1,000 ML IV SCH ×2 (15:24→22:04)
[2019-06-10] MEDS: ZOFRAN TAB 4 MG PO SCH ×2 (15:24→20:00)
[2019-06-10] MEDS: LASIX PO SCH (15:24)
--- NOTE | 2019-06-10 17:51 | CT ---
HISTORYCHECK TUBE PLACEMENT IN PANCREAS, PANCREATIC CASTUDYABDOMEN W/O [id number] axial images of the abdomen were obtained from the lung bases to the pubic symphysis without the administration of IV contrast. Dose reduction techniques including Automated Exposure Control (AEC) and adjustment of mA and kV were utilized.FINDINGS[Limited evaluation given lack of IV contrast administration. Subsegmental atelectasis is noted within the lung bases. There is increasing ground-glass opacity and peribronchial thickening within the left lower lobe. There is a small left-sided pleural effusion. Heart size is normal with severe calcified atherosclerotic disease of coronary arteries. Severe calcification of the mitral valve.Interval placement of a right-sided percutaneous transhepatic biliary drainage catheter with the pigtail located within the right hepatic hilum. There is no significant residual right-sided biliary ductal dilatation. There is moderate residual left-sided biliary ductal dilatation with pneumobilia noted. There is dilatation of the common bile duct with gas noted within the proximal and midportion of the bile duct. The distal common bile duct is collapsed. No catheter identified within the common bile duct or pancreatic duct. Suspected prior cholecystectomy. No appreciable focal hepatic lesion. The spleen is normal. Enlargement and ill-defined hypoattenuation pancreatic head is most consistent with reported pancreatic malignancy and appears slightly more prominent than on prior examination. The adrenal glands are normal.The right kidney contains multiple cyst 1 of which is a hyperdense cyst seen on axial image 27. The left kidney also demonstrates a few cyst 1 which is hyperdense on axial image 26. Upper GI tract demonstrates no evidence of mass or obstruction. Abdominal aorta is normal in caliber. Colonic diverticulosis without evidence of acute diverticulitis. Small fat containing periumbilical hernia. There is also a small fat containing ventral abdominal hernia. Review of bone windows demonstrates no acute osseous abnormality.IMPRESSIONInterval placement of a right-sided percutaneous transhepatic biliary drainage catheter with the pigtail placed within the right hepatic hilum. There is no significant residual right hepatic biliary ductal dilatation. Moderate residual left-sided biliary ductal dilatation and pneumobilia. There is abrupt transition to a normal caliber distal common bile duct at the level the pancreatic head consistent with obstruction. Overall the size and ill-defined heterogeneous attenuation within the pancreatic head has slightly progressed and is suspicious for worsening pancreatic malignancy.Bilateral subsegmental atelectasis however there is slightly increased peribronchial thickening and ground-glass opacities within the left lower lobe with a small left-sided pleural effusion needing clinical correlation for evaluation of a developing pneumonia or aspiration.Electronically signed by: VENTURA ZAMBRANO (Jun 10, 2019 17:49:20)
[2019-06-10] MEDS: ROCEPHIN VIAL 1 GRAM 1 G in NS 100 ML IV + SPIKE MINIBAG* 100 ML IV SCH (20:00)
--- NOTE | 2019-06-10 20:23 | RAD ---
HISTORYABN LOWER CHEST SEEN ON ABD CTSTUDYCHEST, 1 VIEWCOMPARISONNoneFINDINGSThe heart is borderline enlarged. The pulmonary vessels are slightly prominent centrally. The lungs are hypoinflated with hazy subsegmental opacities scattered along the lung bases. There is minimal blunting of the left costophrenic sulcus.IMPRESSIONBorderline cardiomegaly and mild central pulmonary congestion.Mild bibasilar atelectasis or early infiltrates and a questionable tiny left pleural effusion.Electronically signed by: RACHEL RUGGIERO (Jun 10, 2019 20:21:56)
[2019-06-10] MEDS: NEURONTIN CAP 100 MG PO SCH (21:00)
[2019-06-10 21:03] LABS: BASOPHILS # (AUTO) 0.1 X10^3/uL (0.0-0.1); BASOPHILS % (AUTO) 1.4 % (0.2-1.0); EOSINOPHILS # (AUTO) 0.4 x10^3/uL (0.0-0.2); EOSINOPHILS % (AUTO) 4.6 % (0.9-2.9); HEMATOCRIT 23.4 % (36.0-47.0); HEMOGLOBIN 7.8 g/dL (12.0-16.0); LYMPHOCYTES # (AUTO) 2.7 X10^3/uL (1.3-2.9); LYMPHOCYTES % (AUTO) 29.1 % (21.0-51.0); MEAN CORPUSCULAR HEMOGLOBIN 30.7 pg (27.0-34.0); MEAN CORPUSCULAR HGB CONC 33.2 g/dL (33.0-35.0); MEAN CORPUSCULAR VOLUME 92.4 fL (80.0-100.0); MEAN PLATELET VOLUME 7.6 fL (7.4-11.0); MONOCYTES # (AUTO) 0.7 x10^3/uL (0.3-0.8); MONOCYTES % (AUTO) 8.1 % (0.0-13.0); NEUTROPHILS # (AUTO) 5.2 x10^3/uL (2.2-4.8); NEUTROPHILS % (AUTO) 56.8 % (42.0-75.0); PLATELET COUNT 277 X10^3/uL (150.0-450.0); RED BLOOD COUNT 2.53 X10^6/uL (3.5-5.4); RED CELL DISTRIBUTION WIDTH 12.8 % (11.6-16.5); WHITE BLOOD COUNT 9.2 X10^3/uL (3.6-10.0)
[2019-06-10 21:16] LABS: PLATELET MORPHOLOGY COMMENT NORMAL (NORMAL)
[2019-06-10] MEDS ORDERED: TYLENOL 325 MG TAB PO ONE ×2 (22:13→22:16)
[2019-06-10] MEDS ORDERED: BENADRYL INJ 50 MG VIAL IVP ONE (22:13)
[2019-06-10] MEDS ORDERED: BENADRYL INJ 50 MG VIAL ONE (22:15)
[2019-06-10] MEDS ORDERED: NS 250 ML IV 250 ML IV ONE (22:46)
[2019-06-11 03:24] LABS: BASOPHILS # (AUTO) 0.1 X10^3/uL (0.0-0.1); BASOPHILS % (AUTO) 1.2 % (0.2-1.0); EOSINOPHILS # (AUTO) 0.4 x10^3/uL (0.0-0.2); EOSINOPHILS % (AUTO) 3.5 % (0.9-2.9); HEMATOCRIT 26.5 % (36.0-47.0); HEMOGLOBIN 8.9 g/dL (12.0-16.0); LYMPHOCYTES # (AUTO) 2.5 X10^3/uL (1.3-2.9); LYMPHOCYTES % (AUTO) 24.9 % (21.0-51.0); MEAN CORPUSCULAR HGB CONC 33.4 g/dL (33.0-35.0); MEAN CORPUSCULAR VOLUME 92.8 fL (80.0-100.0); MEAN PLATELET VOLUME 8.2 fL (7.4-11.0); MONOCYTES # (AUTO) 1.1 x10^3/uL (0.3-0.8); MONOCYTES % (AUTO) 10.4 % (0.0-13.0); NEUTROPHILS # (AUTO) 6.2 x10^3/uL (2.2-4.8); PLATELET COUNT 271 X10^3/uL (150.0-450.0); RED BLOOD COUNT 2.85 X10^6/uL (3.5-5.4); RED CELL DISTRIBUTION WIDTH 13.4 % (11.6-16.5); WHITE BLOOD COUNT 10.2 X10^3/uL (3.6-10.0)
[2019-06-11 03:33] LABS: ALANINE AMINOTRANSFERASE 14 Units/L (12-78); ALBUMIN 2.1 g/dL (3.4-5.0); ALKALINE PHOSPHATASE 96 Units/L (46-116); ASPARTATE AMINO TRANSFERASE 18 Units/L (15-37); BLOOD UREA NITROGEN 53 mg/dL (7-18); CALCIUM 8.2 mg/dL (8.5-10.1); CARBON DIOXIDE 25.6 mmol/L (21-32); CHLORIDE 109 mmol/L (98-107); COR CA(FOR HYPOALB) 9.7 mg/dL (8.5-10.1); CREATININE 3.57 mg/dL (0.55-1.02); SODIUM 142 mmol/L (136-145); TOTAL PROTEIN 7.5 g/dL (6.4-8.2); eGFR NON BLACK RACES 13 (>60)
[2019-06-11] MEDS: NS 1000 ML 1,000 ML IV SCH ×3 (06:19→22:28)
[2019-06-11] MEDS: ZOFRAN TAB 4 MG PO SCH ×6 (06:19→20:00)
[2019-06-11] MEDS ORDERED: LEXAPRO ONE (07:49)
[2019-06-11] MEDS: NORCO 5/325 MG TAB PO PRN (08:11)
[2019-06-11] MEDS: SYNTHROID 112 mcg TAB PO SCH (08:11)
[2019-06-11] MEDS: KLONOPIN TAB 0.5 MG PO SCH (08:11)
[2019-06-11] MEDS: PriLOSEC PO SCH (08:11)
[2019-06-11] MEDS: LEXAPRO PO SCH (08:12)
[2019-06-11] MEDS: COREG TAB 12.5 MG PO SCH (08:12)
[2019-06-11] MEDS: NORVASC TAB 10 MG PO SCH (08:12)
[2019-06-11] MEDS: NEURONTIN CAP 100 MG PO SCH ×2 (08:12→21:00)
[2019-06-11] MEDS: ROCEPHIN VIAL 1 GRAM 1 G in NS 100 ML IV + SPIKE MINIBAG* 100 ML IV SCH (08:13)
[2019-06-11] MEDS ORDERED: PATIENT'S HOME MEDICATION (Escitalopram Oxalate [Lexapro] 20 MG) PO SCH (09:00)
[2019-06-11] MEDS ORDERED: ASPIRIN EC 81 MG PO SCH (09:00)
[2019-06-11] MEDS ORDERED: LOVENOX INJ 30 MG SYR SC SCH (09:00)
[2019-06-11] MEDS ORDERED: NS 1000 ML 1,000 ML IV ONE ×2 (09:30→09:36)
[2019-06-11 11:02] VITALS: BMI 19.5
--- NOTE | 2019-06-11 22:52 | DR.H&P ---
H&P - History & Physical for Day of: H&P Date: 06/10/19 - Chief Complaint Chief Complaint: FOUL ODOR AND EXCESSIVE DRAINAGE FROM DRAIN TUBE - History of Present Illness History of Present Illness: IS A 89 YEAR OLD PATIENT OF OURS WHO PRESENTED TO THE ER WITH REPORTS OF DRAINAGE FROM A PERCUTANEOUS TUBE TO THE RIGHT SIDE OF HER ABDOMEN. PATIENT HAS A HISTORY OF PANCREATIC CANCER. TUBE WAS PLACED AT ANOTHER FACILITY ABOUT A MONTH AGO. CATHETER WAS ADJUSTED A FEW DAYS PRIOR, BUT CATHETER CAME OUT TODAY AND SHE BEGAN HAVING EXCESSIVE DRAINAGE AROUND THE DRESSING. DRAINAGE IS NOTED TO HAVE A FOUL ODOR. PMH INCLUDES HTN, DYSLIPIDEMIA, COPD, CHOLECYSTECTOMY, HYSTERECTOMY, AND SEVERAL GI ENDOSCOPIES. ON ARRIVAL TO THE ER, VITALS WERE 97.9-81-17-95%-135/63. LABS WERE OBTAINED. ABNORMAL LAB VALUES INCLUDE THE FOLLOWING: RBC 2.40, HGB 7.5, HCT 22.3, CHLORIDE 109, BUN 56, CREATININE 3.62, CALCIUM 8.4, ALBUMIN 2.4, GLOBULIN 5.4. AN ABDOMEN/PELVIS CT WAS OBTAINED AND REVEALED: Interval placement of a right-sided percutaneous transhepatic biliary drainage catheter with the pigtail placed within the right hepatic hilum. There is no significant residual right hepatic biliary ductal dilatation. Moderate residual left-sided biliary ductal dilatation and pneumobilia. There is abrupt transition to a normal caliber distal common bile duct at the level the pancreatic head consistent with obstruction. Overall the size and ill-defined heterogeneous attenuation within the pancreatic head has slightly progressed and is suspicious for worsening pancreatic malignancy. Bilateral subsegmental atelectasis however there is slightly increased peribronchial thickening and ground-glass opacities within the left lower lobe with a small left-sided pleural effusion needing clinical correlation for evaluation of a developing pneumonia or aspiration. A CHEST XRAY WAS OBTAINED AND REVEALED: Borderline cardiomegaly and mild central pulmonary congestion. Mild bibasilar atelectasis or early infiltrates and a questionable tiny left pleural effusion. WE ADMITTED PATIENT FOR FURTHER EVALUATION AND TREATMENT OF PACREATIC CANCER, DISOLDGED PERCUTANEOUS TUBE, AND ANEMIA. SHE WAS TYPE AND SCREENED AND GIVEN ONE UNIT OF PACKED RED BLOOD CELLS. SHE WAS STARTED ON NS AT 100 ML/HR, RESPIRATORY TX, ROCEPHIN 1G IV DAILY, AND HOME MEDICATIONS WERE RESUMED. TODAY, WE WILL BOLUS ONE LITER OF NORMAL SALINE. WILL CONSULT WITH PATIENT THIS MORNING. OTHERWISE, WE WILL FOLLOW UP WITH AM LABS AND CONTINUE TO MONITOR. - Past Medical History Past Medical History: Hypertension, Hypothyroidism, Anemia, COPD - Past Surgical History Surgical History: Appendectomy, Cholecystectomy, Hysterectomy - Social History Does patient currently use any type of tobacco product: No Have you used tobacco products in the last 12 months: No Type of Tobacco Use: None Does any household member use tobacco: No Alcohol Use: None Drug Use: None - Medications Home Medications: No Known Drug Allergies Allergy (Verified 04/29/19 16:57) CONTINUE taking the following medications escitalopram oxalate [Lexapro] 20 mg PO DAILY 06/10/19 [History] omeprazole magnesium [Prilosec OTC] 20 mg PO DAILY 06/10/19 [History] ondansetron HCl [Zofran] 4 mg PO Q4HR 06/10/19 [History] - Review of Systems Constitutional: Weakness Eyes: No Symptoms Reported ENT: No Symptoms Reported Respiratory: No Symptoms Reported Cardiovascular: No Symptoms Reported Gastrointestinal: See HPI, Other (DRAINAGE AND FOUL ODOR FROM PERCUTANEOUS TUBE ) Genitourinary: No Symptoms Reported Musculoskeletal: No Symptoms Reported Skin: Other (REDNESS SURROUNDING DRAIN SITE ) Neurological: Weakness - Physical Exam Vital Signs: Temperature 98.2 F Pulse Rate [Left Brachial] 100 Pulse Rate [Right Radial] 83 Pulse Rate 88 Respiratory Rate 18 Blood Pressure [Left Arm] 118/67 Blood Pressure [Right Arm] 113/56 Blood Pressure 135/63 O2 Sat by Pulse Oximetry 93 Oriented: Normal Eyes: Normal Ear: Normal Nose: Normal Throat: Normal Respiratory: Diminished Throughout Cardiovascular: Normal, S4. negative: S3, Murmur, Edema : Normal Auscultation: Bowel Sounds: Normal Palpation: Normal Tenderness: Normal Skin: Red (REDNESS FROM DRAIN SITE ) Musculoskeletal: Normal Psychiatric: Normal Mood Description: Calm Affect: Normal Speech Pattern: Clear - Allergies Allergies/Adverse Reactions: Allergies Allergy/AdvReac Type Severity Reaction Status Date / Time No Known Drug Allergies Allergy Verified 04/29/19 16:57
--- NOTE | 2019-06-11 23:14 | DR.PROGNOT ---
Hospital Progress Notes - Progress Note for Day of: Progress Note Date: 06/11/19 - Chief Complaint Chief Complaint: c/o upper abdominal pain . no vomiting . moderat drainage around the percutaneous transhepatic catheter which is almost out . CT showed dilated Lt hepatic duct with normal Rt duct . Bilirubin and LFT are normal . stable VS - Past Medical Family Social History Past Med/Fam/Surg Hx: No changes since H&P Allergies: Allergies No Known Drug Allergies Allergy (Verified 04/29/19 16:57) - Vital Signs Vital Signs: Temperature 98.2 F Pulse Rate [Left Brachial] 100 Pulse Rate [Right Radial] 83 Pulse Rate 88 Respiratory Rate 18 Blood Pressure [Left Arm] 118/67 Blood Pressure [Right Arm] 113/56 Blood Pressure 135/63 O2 Sat by Pulse Oximetry 93 - Physical Exam Oriented: Normal Eyes: Normal Ear: Normal Nose: Normal Throat: Normal Cardiovascular: Normal, S4. negative: S3, Murmur, Edema : Normal GI:Auscultation: Normal GI:Palpation: Normal, Mass Pulsatile GI: Tenderness: Epigastric (epigastric and RUQ tendrness with bile genesis around the drainage catheter ) Skin: Red (REDNESS FROM DRAIN SITE ) Musculoskeletal: Normal Psychiatric: Normal Mood Description: Calm Affect: Normal Speech Pattern: Clear - Laboratory and Diagnostics Result Diagrams: 06/11/19 02:56 06/11/19 02:56 Labs: Laboratory WBC 10.2 X10^3/uL (3.6-10.0) H 06/11/19 02:56 RBC 2.85 X10^6/uL (3.5-5.4) L 06/11/19 02:56 Hgb 8.9 g/dL (12.0-16.0) L 06/11/19 02:56 Hct 26.5 % (36.0-47.0) L 06/11/19 02:56 MCV 92.8 fL (80.0-100.0) 06/11/19 02:56 MCH 31.0 pg (27.0-34.0) 06/11/19 02:56 MCHC 33.4 g/dL (33.0-35.0) 06/11/19 02:56 RDW 13.4 % (11.6-16.5) 06/11/19 02:56 Plt Count 271 X10^3/uL (150.0-450.0) 06/11/19 02:56 Plt Count Comment Adequate (ADEQUATE) 06/10/19 20:30 MPV 8.2 fL (7.4-11.0) 06/11/19 02:56 Neut % (Auto) 60.0 % (42.0-75.0) 06/11/19 02:56 Lymph % (Auto) 24.9 % (21.0-51.0) 06/11/19 02:56 [place] % (Auto) 10.4 % (0.0-13.0) 06/11/19 02:56 Eos % (Auto) 3.5 % (0.9-2.9) H 06/11/19 02:56 Baso % (Auto) 1.2 % (0.2-1.0) H 06/11/19 02:56 Neut # (Auto) 6.2 x10^3/uL (2.2-4.8) H 06/11/19 02:56 Lymph # (Auto) 2.5 X10^3/uL (1.3-2.9) 06/11/19 02:56 [place] # (Auto) 1.1 x10^3/uL (0.3-0.8) H 06/11/19 02:56 Eos # (Auto) 0.4 x10^3/uL (0.0-0.2) H 06/11/19 02:56 Baso # (Auto) 0.1 X10^3/uL (0.0-0.1) 06/11/19 02:56 Absolute Nucleated RBC 0.0 /100WBC 06/11/19 02:56 Plt Morphology Comment Normal (NORMAL) 06/10/19 20:30 RBC Morphology Normal (NORMAL) 06/10/19 20:30 Hypochromasia Slight A 06/10/19 11:39 Target Cells Few 06/10/19 11:39 Sodium 142 mmol/L (136-145) 06/11/19 02:56 Corrected Sodium TNP 06/11/19 02:56 Potassium 4.9 mmol/L (3.5-5.1) 06/11/19 02:56 Chloride 109 mmol/L (98-107) H 06/11/19 02:56 Carbon Dioxide 25.6 mmol/L (21-32) 06/11/19 02:56 BUN 53 mg/dL (7-18) H 06/11/19 02:56 Creatinine 3.57 mg/dL (0.55-1.02) H 06/11/19 02:56 Est GFR (MDRD) Af Amer 15 (>60) L 06/11/19 02:56 Est GFR (MDRD) Non-Af 13 (>60) L 06/11/19 02:56 Glucose 92 mg/dL (65-99) 06/11/19 02:56 Calcium 8.2 mg/dL (8.5-10.1) L 06/11/19 02:56 Corrected Calcium 9.7 mg/dL (8.5-10.1) 06/11/19 02:56 Total Bilirubin 0.90 mg/dL (0.2-1.0) 06/11/19 02:56 AST 18 Units/L (15-37) 06/11/19 02:56 ALT 14 Units/L (12-78) 06/11/19 02:56 Alkaline Phosphatase 96 Units/L (46-116) 06/11/19 02:56 Total Protein 7.5 g/dL (6.4-8.2) 06/11/19 02:56 Albumin 2.1 g/dL (3.4-5.0) L 06/11/19 02:56 Globulin 5.4 g/dL (2.5-4.5) H 06/11/19 02:56 Albumin/Globulin Ratio 0.4 Ratio (1.1-2.1) L 06/11/19 02:56 Blood Type B POSITIVE 06/10/19 18:13 Antibody Screen Negative 06/10/19 18:13 Crossmatch See Detail 06/10/19 18:13 - Assessment and Plan 1: malposition of percutaneous drainage catheter with bile genesis around it . needs replacement ,( awaiting available catheter ). other choice is surgery and internal bypass . Pt is on IV ATB . will talk to the family .. - Problem Patient Problems: Patient Problems Pancreatic cancer (Acute) C25.9 Anemia in chronic illness (Acute) D63.8 Obstructive jaundice (Acute) K83.1 CKD (chronic kidney disease) stage 5, GFR less than 15 ml/min (Acute) N18.5 Benign essential HTN (Acute) I10 Hypothyroidism (Acute) E03.9
[2019-06-12] MEDS: ZOFRAN TAB 4 MG PO SCH ×6 (02:20→20:00)
[2019-06-12] MEDS: NS 1000 ML 1,000 ML IV SCH ×3 (05:03→21:40)
[2019-06-12 06:28] LABS: BASOPHILS % (AUTO) 0.4 % (0.2-1.0); EOSINOPHILS # (AUTO) 0.3 x10^3/uL (0.0-0.2); EOSINOPHILS % (AUTO) 3.5 % (0.9-2.9); HEMOGLOBIN 8.9 g/dL (12.0-16.0); LYMPHOCYTES # (AUTO) 2.8 X10^3/uL (1.3-2.9); LYMPHOCYTES % (AUTO) 30.4 % (21.0-51.0); MEAN CORPUSCULAR HEMOGLOBIN 31.4 pg (27.0-34.0); MEAN CORPUSCULAR VOLUME 92.2 fL (80.0-100.0); MEAN PLATELET VOLUME 7.6 fL (7.4-11.0); MONOCYTES # (AUTO) 0.9 x10^3/uL (0.3-0.8); MONOCYTES % (AUTO) 9.9 % (0.0-13.0); NEUTROPHILS # (AUTO) 5.2 x10^3/uL (2.2-4.8); NEUTROPHILS % (AUTO) 55.8 % (42.0-75.0); PLATELET COUNT 279 X10^3/uL (150.0-450.0); RED BLOOD COUNT 2.82 X10^6/uL (3.5-5.4); RED CELL DISTRIBUTION WIDTH 13.9 % (11.6-16.5); WHITE BLOOD COUNT 9.3 X10^3/uL (3.6-10.0)
[2019-06-12 06:42] LABS: ALANINE AMINOTRANSFERASE 11 Units/L (12-78); ALBUMIN 2.1 g/dL (3.4-5.0); ALKALINE PHOSPHATASE 87 Units/L (46-116); ASPARTATE AMINO TRANSFERASE 19 Units/L (15-37); BLOOD UREA NITROGEN 49 mg/dL (7-18); CALCIUM 8.5 mg/dL (8.5-10.1); CARBON DIOXIDE 22.4 mmol/L (21-32); CHLORIDE 111 mmol/L (98-107); SODIUM 143 mmol/L (136-145); TOTAL PROTEIN 7.6 g/dL (6.4-8.2); eGFR NON BLACK RACES 14 (>60)
[2019-06-12] MEDS ORDERED: LEXAPRO ONE ×2 (08:37→08:39)
[2019-06-12] MEDS: SYNTHROID 112 mcg TAB PO SCH (09:19)
[2019-06-12] MEDS: ROCEPHIN VIAL 1 GRAM 1 G in NS 100 ML IV + SPIKE MINIBAG* 100 ML IV SCH ×2 (09:19→09:26)
[2019-06-12] MEDS: NORVASC TAB 10 MG PO SCH (09:20)
[2019-06-12] MEDS: COREG TAB 12.5 MG PO SCH (09:21)
[2019-06-12] MEDS: NEURONTIN CAP 100 MG PO SCH ×2 (09:21→21:39)
[2019-06-12] MEDS: KLONOPIN TAB 0.5 MG PO SCH (09:22)
[2019-06-12] MEDS: PriLOSEC PO SCH (09:22)
[2019-06-12] MEDS: LEXAPRO PO SCH (09:23)
[2019-06-12] MEDS: DUONEB 0.5 MG/3 MG (3 mL) NEB PRN (09:58)
[2019-06-12] MEDS ORDERED: PROCALAMINE 3 % 1,000 ML IV SCH (10:00)
[2019-06-12] MEDS: ALBUMIN HUMAN 25%- 100 ML 100 ML IV SCH (11:15)
--- NOTE | 2019-06-12 15:40 | DR.PROGNOT ---
Hospital Progress Notes - Progress Note for Day of: Progress Note Date: 06/12/19 - Chief Complaint Chief Complaint: mild upper abdominal pain . no vomiting . moderat drainage around the percutaneous transhepatic catheter which is partially out . CT showed dilated Lt hepatic duct with normal Rt duct . Bilirubin and LFT are normal . stable VS - Past Medical Family Social History Past Med/Fam/Surg Hx: No changes since H&P Allergies: Allergies No Known Drug Allergies Allergy (Verified 04/29/19 16:57) - Review Of Systems ROS: No change since H&P - Vital Signs Vital Signs: Temperature 98.6 F Pulse Rate [Left Brachial] 100 Pulse Rate [Right Radial] 72 Pulse Rate 72 Respiratory Rate 18 Blood Pressure [Left Arm] 118/67 Blood Pressure [Right Arm] 124/55 Blood Pressure 135/63 O2 Sat by Pulse Oximetry 99 - Physical Exam Oriented: Normal Eyes: Normal Ear: Normal Nose: Normal Throat: Normal Cardiovascular: Normal, S4. negative: S3, Murmur, Edema : Normal GI:Auscultation: Normal GI:Palpation: Normal, Mass Pulsatile GI: Tenderness: Epigastric (epigastric and RUQ tendrness with bile genesis around the drainage catheter ) Skin: Red (REDNESS FROM DRAIN SITE ) Musculoskeletal: Normal Psychiatric: Normal Mood Description: Calm Affect: Normal Speech Pattern: Clear, Appropriate - Laboratory and Diagnostics Result Diagrams: 06/12/19 05:20 06/12/19 05:20 Labs: Laboratory WBC 9.3 X10^3/uL (3.6-10.0) 06/12/19 05:20 RBC 2.82 X10^6/uL (3.5-5.4) L 06/12/19 05:20 Hgb 8.9 g/dL (12.0-16.0) L 06/12/19 05:20 Hct 26.0 % (36.0-47.0) L 06/12/19 05:20 MCV 92.2 fL (80.0-100.0) 06/12/19 05:20 MCH 31.4 pg (27.0-34.0) 06/12/19 05:20 MCHC 34.0 g/dL (33.0-35.0) 06/12/19 05:20 RDW 13.9 % (11.6-16.5) 06/12/19 05:20 Plt Count 279 X10^3/uL (150.0-450.0) 06/12/19 05:20 Plt Count Comment Adequate (ADEQUATE) 06/10/19 20:30 MPV 7.6 fL (7.4-11.0) 06/12/19 05:20 Neut % (Auto) 55.8 % (42.0-75.0) 06/12/19 05:20 Lymph % (Auto) 30.4 % (21.0-51.0) 06/12/19 05:20 [place] % (Auto) 9.9 % (0.0-13.0) 06/12/19 05:20 Eos % (Auto) 3.5 % (0.9-2.9) H 06/12/19 05:20 Baso % (Auto) 0.4 % (0.2-1.0) 06/12/19 05:20 Neut # (Auto) 5.2 x10^3/uL (2.2-4.8) H 06/12/19 05:20 Lymph # (Auto) 2.8 X10^3/uL (1.3-2.9) 06/12/19 05:20 [place] # (Auto) 0.9 x10^3/uL (0.3-0.8) H 06/12/19 05:20 Eos # (Auto) 0.3 x10^3/uL (0.0-0.2) H 06/12/19 05:20 Baso # (Auto) 0.0 X10^3/uL (0.0-0.1) 06/12/19 05:20 Absolute Nucleated RBC 0.0 /100WBC 06/12/19 05:20 Plt Morphology Comment Normal (NORMAL) 06/10/19 20:30 RBC Morphology Normal (NORMAL) 06/10/19 20:30 Hypochromasia Slight A 06/10/19 11:39 Target Cells Few 06/10/19 11:39 Sodium 143 mmol/L (136-145) 06/12/19 05:20 Corrected Sodium TNP 06/12/19 05:20 Potassium 4.8 mmol/L (3.5-5.1) 06/12/19 05:20 Chloride 111 mmol/L (98-107) H 06/12/19 05:20 Carbon Dioxide 22.4 mmol/L (21-32) 06/12/19 05:20 BUN 49 mg/dL (7-18) H 06/12/19 05:20 Creatinine 3.30 mg/dL (0.55-1.02) H 06/12/19 05:20 Est GFR (MDRD) Af Amer 17 (>60) L 06/12/19 05:20 Est GFR (MDRD) Non-Af 14 (>60) L 06/12/19 05:20 Glucose 85 mg/dL (65-99) 06/12/19 05:20 Calcium 8.5 mg/dL (8.5-10.1) 06/12/19 05:20 Corrected Calcium 10.0 mg/dL (8.5-10.1) 06/12/19 05:20 Total Bilirubin 0.60 mg/dL (0.2-1.0) 06/12/19 05:20 AST 19 Units/L (15-37) 06/12/19 05:20 ALT 11 Units/L (12-78) L 06/12/19 05:20 Alkaline Phosphatase 87 Units/L (46-116) 06/12/19 05:20 Total Protein 7.6 g/dL (6.4-8.2) 06/12/19 05:20 Albumin 2.1 g/dL (3.4-5.0) L 06/12/19 05:20 Globulin 5.5 g/dL (2.5-4.5) H 06/12/19 05:20 Albumin/Globulin Ratio 0.4 Ratio (1.1-2.1) L 06/12/19 05:20 Blood Type B POSITIVE 06/10/19 18:13 Antibody Screen Negative 06/10/19 18:13 Crossmatch See Detail 06/10/19 18:13 - Assessment and Plan 1: malposition of percutaneous drainage catheter with bile genesis around it . needs replacement ,( awaiting available catheter ). to replace the catheter on Saturday . - Problem Patient Problems: Patient Problems Anemia in chronic illness (Acute) D63.8 Obstructive jaundice (Acute) K83.1 Pancreatic cancer (Chronic) C25.9 CKD (chronic kidney disease) stage 5, GFR less than 15 ml/min (Chronic) N18.5 Benign essential HTN (Chronic) I10 Hypothyroidism (Chronic) E03.9
[2019-06-13] MEDS: ZOFRAN TAB 4 MG PO SCH ×6 (03:48→20:57)
[2019-06-13] MEDS: NS 1000 ML 1,000 ML IV SCH (06:16)
[2019-06-13 06:39] LABS: BASOPHILS # (AUTO) 0.1 X10^3/uL (0.0-0.1); BASOPHILS % (AUTO) 0.9 % (0.2-1.0); EOSINOPHILS # (AUTO) 0.3 x10^3/uL (0.0-0.2); EOSINOPHILS % (AUTO) 3.1 % (0.9-2.9); HEMATOCRIT 25.1 % (36.0-47.0); HEMOGLOBIN 8.4 g/dL (12.0-16.0); LYMPHOCYTES # (AUTO) 3.1 X10^3/uL (1.3-2.9); LYMPHOCYTES % (AUTO) 35.2 % (21.0-51.0); MEAN CORPUSCULAR HEMOGLOBIN 30.9 pg (27.0-34.0); MEAN CORPUSCULAR HGB CONC 33.5 g/dL (33.0-35.0); MEAN CORPUSCULAR VOLUME 92.3 fL (80.0-100.0); MEAN PLATELET VOLUME 7.2 fL (7.4-11.0); MONOCYTES # (AUTO) 0.9 x10^3/uL (0.3-0.8); MONOCYTES % (AUTO) 10.5 % (0.0-13.0); NEUTROPHILS # (AUTO) 4.4 x10^3/uL (2.2-4.8); NEUTROPHILS % (AUTO) 50.3 % (42.0-75.0); PLATELET COUNT 248 X10^3/uL (150.0-450.0); RED BLOOD COUNT 2.72 X10^6/uL (3.5-5.4); RED CELL DISTRIBUTION WIDTH 13.1 % (11.6-16.5); WHITE BLOOD COUNT 8.7 X10^3/uL (3.6-10.0)
[2019-06-13 07:00] LABS: ALANINE AMINOTRANSFERASE 8 Units/L (12-78); ALKALINE PHOSPHATASE 85 Units/L (46-116); ASPARTATE AMINO TRANSFERASE 20 Units/L (15-37); BLOOD UREA NITROGEN 44 mg/dL (7-18); CALCIUM 8.1 mg/dL (8.5-10.1); CARBON DIOXIDE 22.2 mmol/L (21-32); CHLORIDE 110 mmol/L (98-107); COR CA(FOR HYPOALB) 9.7 mg/dL (8.5-10.1); CREATININE 3.51 mg/dL (0.55-1.02); SODIUM 140 mmol/L (136-145); TOTAL PROTEIN 7.2 g/dL (6.4-8.2); eGFR NON BLACK RACES 13 (>60)
[2019-06-13] MEDS: ALBUMIN HUMAN 25%- 100 ML 100 ML IV SCH ×2 (08:13→15:29)
[2019-06-13] MEDS ORDERED: LEXAPRO ONE (08:25)
[2019-06-13] MEDS: PriLOSEC PO SCH (09:06)
[2019-06-13] MEDS: NEURONTIN CAP 100 MG PO SCH ×2 (09:06→20:56)
[2019-06-13] MEDS: COREG TAB 12.5 MG PO SCH (09:06)
[2019-06-13] MEDS: SYNTHROID 112 mcg TAB PO SCH (09:06)
[2019-06-13] MEDS: NORVASC TAB 10 MG PO SCH (09:06)
[2019-06-13] MEDS: LEXAPRO PO SCH (09:07)
[2019-06-13] MEDS: KLONOPIN TAB 0.5 MG PO SCH (09:07)
[2019-06-13] MEDS ORDERED: ROCEPHIN VIAL 1 GRAM IM SCH (10:45)
[2019-06-13] MEDS: LASIX PO SCH (13:18)
[2019-06-14] MEDS: ZOFRAN TAB 4 MG PO SCH ×6 (05:11→20:46)
[2019-06-14 06:00] LABS: BASOPHILS # (AUTO) 0.1 X10^3/uL (0.0-0.1); BASOPHILS % (AUTO) 0.6 % (0.2-1.0); EOSINOPHILS # (AUTO) 0.3 x10^3/uL (0.0-0.2); EOSINOPHILS % (AUTO) 3.3 % (0.9-2.9); HEMATOCRIT 23.5 % (36.0-47.0); LYMPHOCYTES # (AUTO) 3.1 X10^3/uL (1.3-2.9); MEAN CORPUSCULAR HEMOGLOBIN 31.6 pg (27.0-34.0); MEAN CORPUSCULAR HGB CONC 34.2 g/dL (33.0-35.0); MEAN CORPUSCULAR VOLUME 92.3 fL (80.0-100.0); MEAN PLATELET VOLUME 8.1 fL (7.4-11.0); MONOCYTES # (AUTO) 0.9 x10^3/uL (0.3-0.8); MONOCYTES % (AUTO) 10.6 % (0.0-13.0); NEUTROPHILS % (AUTO) 48.5 % (42.0-75.0); PLATELET COUNT 249 X10^3/uL (150.0-450.0); RED BLOOD COUNT 2.54 X10^6/uL (3.5-5.4); RED CELL DISTRIBUTION WIDTH 13.3 % (11.6-16.5); WHITE BLOOD COUNT 8.4 X10^3/uL (3.6-10.0)
[2019-06-14 06:30] LABS: ALANINE AMINOTRANSFERASE 10 Units/L (12-78); ALBUMIN 1.9 g/dL (3.4-5.0); ALKALINE PHOSPHATASE 78 Units/L (46-116); ASPARTATE AMINO TRANSFERASE 22 Units/L (15-37); BLOOD UREA NITROGEN 42 mg/dL (7-18); CALCIUM 7.8 mg/dL (8.5-10.1); CARBON DIOXIDE 23.3 mmol/L (21-32); CHLORIDE 110 mmol/L (98-107); COR CA(FOR HYPOALB) 9.5 mg/dL (8.5-10.1); CREATININE 3.43 mg/dL (0.55-1.02); SODIUM 142 mmol/L (136-145); TOTAL PROTEIN 6.9 g/dL (6.4-8.2); eGFR NON BLACK RACES 13 (>60)
[2019-06-14] MEDS: DUONEB 0.5 MG/3 MG (3 mL) NEB PRN (08:50)
[2019-06-14] MEDS ORDERED: LEXAPRO ONE (09:18)
[2019-06-14] MEDS ORDERED: NS 100 ML IV + SPIKE MINIBAG* 100 ML IV ONE (09:20)
[2019-06-14] MEDS: ROCEPHIN VIAL 1 GRAM IV SCH (09:31)
[2019-06-14] MEDS: NEURONTIN CAP 100 MG PO SCH ×2 (09:33→20:46)
[2019-06-14] MEDS: NORVASC TAB 10 MG PO SCH (09:34)
[2019-06-14] MEDS: PriLOSEC PO SCH (09:34)
[2019-06-14] MEDS: SYNTHROID 112 mcg TAB PO SCH (09:35)
[2019-06-14] MEDS: KLONOPIN TAB 0.5 MG PO SCH (09:35)
[2019-06-14] MEDS: COREG TAB 12.5 MG PO SCH (09:35)
[2019-06-14] MEDS: LEXAPRO PO SCH (09:36)
[2019-06-14] MEDS: ALBUMIN HUMAN 25%- 100 ML 100 ML IV SCH (10:30)
[2019-06-14] MEDS: NS 1000 ML 1,000 ML IV SCH ×2 (14:22→21:46)
--- NOTE | 2019-06-14 21:25 | PCM.PROG ---
Progress Note - Progress Note for Day of Date of Exam: 06/12/19 - Subjective Subjective: IS BEING TREATED FOR A DISLODGED PERCUTANEOUS TUBE, PANCREATIC CANCER, RENAL FAILURE, AND ANEMIA. SHE HAS RECEIVED ONE UNIT OF PRBC SINCE ADMISSION. FEELS THAT THE TUBE NEEDS REPLACEMENT, BUT IS AWAITING AN AVAILABLE CATHETER. HE PLANS TO REPLACE CATHETER ON SATURDAY. TODAY, PATIENT IS ALERT AND ORIENTED, SITTING UP ON THE SIDE OF THE BED ON MORNING ROUNDS. THERE CONTINUES TO BE DRAINAGE FROM SITE. HER VITALS THIS ELIE ARE: 98.6-77-18-96%-116/58. LABS WERE OBTAINED. ABNORMAL LAB VALUES INCLUDE THE FOLLOWING: RBC 2.82, HGB 8.9, HCT 26.0, CHLORIDE 110, BUN 42, CREATININE 3.30, ALT 11, ALBUMIN 2.1, GLOBULIN 55. SHE IS CURRENTLY RECEIVING NORMAL SALINE AT 50 ML/HR, RESPIRATORY TX, ROCEPHIN 1G IV DAILY, AND HOME MEDICATIONS WERE RESUMED. TODAY, WE WILL START IV PROCALAMINE AT 50 ML/HR AND ALBUMIN 25% IV DAILY. WE WILL DECREASE IV FLUIDS TO 50ML/HR. WE WILL CONSULT ANESTHESIA FOR A PICC LINE OR CENTRAL LINE. OTHERWISE, WE WILL FOLLOW UP WITH AM LABS AND CONTINUE TO MONITOR. - Past Medical Family Social History Past Med/Fam/Surg Hx: No changes since H&P Allergies: Allergies No Known Drug Allergies Allergy (Verified 04/29/19 16:57) - Review of Systems ROS: No change since H&P - Vital Signs and I&O's Vital Signs: Temperature 99.1 F Pulse Rate [Left Brachial] 72 Pulse Rate [Right Radial] 71 Pulse Rate 70 Respiratory Rate 18 Blood Pressure [Left Arm] 118/67 Blood Pressure [Right Arm] 109/58 Blood Pressure 135/63 O2 Sat by Pulse Oximetry 93 Intake and Output: Intake & Output 06/12/19 06/13/19 06/14/19 06/15/19 11:59 11:59 11:59 11:59 Intake Total 540 / 540 960 / 960 460 / 460 740 / 740 Balance 540 / 540 960 / 960 460 / 460 740 / 740 - Physical Exam Oriented: Normal Eyes: Normal Ear: Normal Nose: Normal Throat: Normal Cardiovascular: Normal. negative: S3, S4, Murmur, Edema : Normal Auscultation: Bowel Sounds: Normal Palpation: Normal Tenderness: Epigastric (epigastric and RUQ tendrness with bile genesis around the drainage catheter ) Skin: Red (REDNESS FROM DRAIN SITE ) Musculoskeletal: Normal Psychiatric: Normal Mood Description: Calm Affect: Normal Speech Pattern: Clear, Appropriate - Laboratory and Diagnostics Result Diagrams: 06/15/19 05:14 06/15/19 05:14 Labs: Laboratory WBC 8.4 X10^3/uL (3.6-10.0) 06/14/19 04:51 RBC 2.54 X10^6/uL (3.5-5.4) L 06/14/19 04:51 Hgb 8.0 g/dL (12.0-16.0) L 06/14/19 04:51 Hct 23.5 % (36.0-47.0) L 06/14/19 04:51 MCV 92.3 fL (80.0-100.0) 06/14/19 04:51 MCH 31.6 pg (27.0-34.0) 06/14/19 04:51 MCHC 34.2 g/dL (33.0-35.0) 06/14/19 04:51 RDW 13.3 % (11.6-16.5) 06/14/19 04:51 Plt Count 249 X10^3/uL (150.0-450.0) 06/14/19 04:51 Plt Count Comment Adequate (ADEQUATE) 06/10/19 20:30 MPV 8.1 fL (7.4-11.0) 06/14/19 04:51 Neut % (Auto) 48.5 % (42.0-75.0) 06/14/19 04:51 Lymph % (Auto) 37.0 % (21.0-51.0) 06/14/19 04:51 [place] % (Auto) 10.6 % (0.0-13.0) 06/14/19 04:51 Eos % (Auto) 3.3 % (0.9-2.9) H 06/14/19 04:51 Baso % (Auto) 0.6 % (0.2-1.0) 06/14/19 04:51 Neut # (Auto) 4.0 x10^3/uL (2.2-4.8) 06/14/19 04:51 Lymph # (Auto) 3.1 X10^3/uL (1.3-2.9) H 06/14/19 04:51 [place] # (Auto) 0.9 x10^3/uL (0.3-0.8) H 06/14/19 04:51 Eos # (Auto) 0.3 x10^3/uL (0.0-0.2) H 06/14/19 04:51 Baso # (Auto) 0.1 X10^3/uL (0.0-0.1) 06/14/19 04:51 Absolute Nucleated RBC 0.1 /100WBC 06/14/19 04:51 Plt Morphology Comment Normal (NORMAL) 06/10/19 20:30 RBC Morphology Normal (NORMAL) 06/10/19 20:30 Hypochromasia Slight A 06/10/19 11:39 Target Cells Few 06/10/19 11:39 Sodium 142 mmol/L (136-145) 06/14/19 04:51 Corrected Sodium TNP 06/14/19 04:51 Potassium 4.7 mmol/L (3.5-5.1) 06/14/19 04:51 Chloride 110 mmol/L (98-107) H 06/14/19 04:51 Carbon Dioxide 23.3 mmol/L (21-32) 06/14/19 04:51 BUN 42 mg/dL (7-18) H 06/14/19 04:51 Creatinine 3.43 mg/dL (0.55-1.02) H 06/14/19 04:51 Est GFR (MDRD) Af Amer 16 (>60) L 06/14/19 04:51 Est GFR (MDRD) Non-Af 13 (>60) L 06/14/19 04:51 Glucose 78 mg/dL (65-99) 06/14/19 04:51 Calcium 7.8 mg/dL (8.5-10.1) L 06/14/19 04:51 Corrected Calcium 9.5 mg/dL (8.5-10.1) 06/14/19 04:51 Total Bilirubin 0.50 mg/dL (0.2-1.0) 06/14/19 04:51 AST 22 Units/L (15-37) 06/14/19 04:51 ALT 10 Units/L (12-78) L 06/14/19 04:51 Alkaline Phosphatase 78 Units/L (46-116) 06/14/19 04:51 Total Protein 6.9 g/dL (6.4-8.2) 06/14/19 04:51 Albumin 1.9 g/dL (3.4-5.0) L 06/14/19 04:51 Globulin 5.0 g/dL (2.5-4.5) H 06/14/19 04:51 Albumin/Globulin Ratio 0.4 Ratio (1.1-2.1) L 06/14/19 04:51 Blood Type B POSITIVE 06/10/19 18:13 Antibody Screen Negative 06/10/19 18:13 Crossmatch See Detail 06/10/19 18:13 - Plan (1) Anemia in chronic illness Status: Acute Plan: MONITOR H&H (2) Pancreatic cancer Status: Chronic Qualifiers: Pancreatic malignancy location: unspecified Qualified Code(s): C25.9 - Malignant neoplasm of pancreas, unspecified (3) Hyperlipidemia Status: Chronic Qualifiers: Hyperlipidemia type: mixed hyperlipidemia Qualified Code(s): E78.2 - Mixed hyperlipidemia (4) GERD (gastroesophageal reflux disease) Status: Chronic Qualifiers: Esophagitis presence: esophagitis presence not specified Qualified Code(s): K21.9 - Gastro-esophageal reflux disease without esophagitis Plan: CONTINUE HOME MEDS (5) Coronary artery disease Status: Chronic Qualifiers: Coronary Disease-Associated Artery/Lesion type: [place] artery [place] vs. transplanted heart: [place] heart Associated angina: angina presence unspecified Qualified Code(s): I25.10 - Atherosclerotic heart disease of [place] coronary artery without angina pectoris Plan: CONTINUE HOME MEDS (6) Benign essential HTN Status: Chronic Plan: CONTINUE HOME MEDS (7) CKD (chronic kidney disease) stage 5, GFR less than 15 ml/min Status: Chronic Plan: CONTINUE HOME MEDS (8) Hypothyroidism Status: Chronic Qualifiers: Hypothyroidism type: due to acquired atrophy of thyroid Qualified Code(s): E03.4 - Atrophy of thyroid (acquired) Plan: CONTINUE HOME MEDS
[2019-06-15] MEDS: ZOFRAN TAB 4 MG PO SCH ×6 (00:30→21:11)
[2019-06-15] MEDS: NS 1000 ML 1,000 ML IV SCH ×3 (05:24→21:09)
[2019-06-15 05:42] LABS: BASOPHILS % (AUTO) 0.3 % (0.2-1.0); EOSINOPHILS # (AUTO) 0.3 x10^3/uL (0.0-0.2); EOSINOPHILS % (AUTO) 2.4 % (0.9-2.9); HEMATOCRIT 26.2 % (36.0-47.0); HEMOGLOBIN 8.7 g/dL (12.0-16.0); LYMPHOCYTES # (AUTO) 2.6 X10^3/uL (1.3-2.9); LYMPHOCYTES % (AUTO) 25.8 % (21.0-51.0); MEAN CORPUSCULAR HEMOGLOBIN 31.1 pg (27.0-34.0); MEAN CORPUSCULAR HGB CONC 33.4 g/dL (33.0-35.0); MEAN PLATELET VOLUME 7.7 fL (7.4-11.0); MONOCYTES # (AUTO) 0.9 x10^3/uL (0.3-0.8); MONOCYTES % (AUTO) 8.8 % (0.0-13.0); NEUTROPHILS # (AUTO) 6.4 x10^3/uL (2.2-4.8); NEUTROPHILS % (AUTO) 62.7 % (42.0-75.0); PLATELET COUNT 269 X10^3/uL (150.0-450.0); RED BLOOD COUNT 2.81 X10^6/uL (3.5-5.4); WHITE BLOOD COUNT 10.2 X10^3/uL (3.6-10.0)
[2019-06-15 06:00] LABS: ALANINE AMINOTRANSFERASE < 6 Units/L (12-78); ALBUMIN 2.5 g/dL (3.4-5.0); ALKALINE PHOSPHATASE 80 Units/L (46-116); ASPARTATE AMINO TRANSFERASE 21 Units/L (15-37); BLOOD UREA NITROGEN 36 mg/dL (7-18); CALCIUM 8.3 mg/dL (8.5-10.1); CARBON DIOXIDE 21.6 mmol/L (21-32); CHLORIDE 110 mmol/L (98-107); COR CA(FOR HYPOALB) 9.5 mg/dL (8.5-10.1); CREATININE 3.11 mg/dL (0.55-1.02); SODIUM 142 mmol/L (136-145); TOTAL PROTEIN 7.6 g/dL (6.4-8.2); eGFR NON BLACK RACES 15 (>60)
[2019-06-15] MEDS ORDERED: NS 100 ML IV + SPIKE MINIBAG* 100 ML IV ONE (08:09)
[2019-06-15] MEDS: ROCEPHIN VIAL 1 GRAM IV SCH (08:14)
[2019-06-15] MEDS ORDERED: FENTANYL INJ 100 mcg ONE (08:32)
--- NOTE | 2019-06-15 10:01 | OR.IMMED ---
Immediate Post-Op Note - Immediate Post-Op Note Pre-Op Diagnosis: malfunctioning biliary drainage catheter . 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 Procedure: placement of new percutaneous transhepatic drainage catheter into the CBD Surgeon/Target Man: Chanel Estimated Blood Loss: none Drains: Catheter Complications: none Condition: Stable (to advance diet , and use central line .)
--- NOTE | 2019-06-15 10:34 | RAD ---
HISTORYCentral line placedSTUDYCHEST, 1 [id number] is a right IJ line with its tip likely in the proximal right atrium. The heart is mildly enlarged. No congestive heart failure is noted. No definite acute alveolar infiltrates are identified. No pleural effusions are identified. Bony thorax is unremarkable with the exception of chronic rotator cuff disease on the right.IMPRESSIONRight IJ line tip proximal right atriumMild cardiomegaly without congestive heart failureNo infiltratesElectronically signed by: JEREMI MITCHELL (Jun 15, 2019 10:32:22)
[2019-06-15] MEDS ORDERED: LEXAPRO ONE (11:28)
[2019-06-15] MEDS ORDERED: VERSED ONE (11:31)
[2019-06-15] MEDS ORDERED: DIPRIVAN VIAL ONE (11:31)
[2019-06-15] MEDS: ALBUMIN HUMAN 25%- 100 ML 100 ML IV SCH (11:54)
[2019-06-15] MEDS: COREG TAB 12.5 MG PO SCH (11:56)
[2019-06-15] MEDS: PROCALAMINE 3 % 1,000 ML IV SCH (11:56)
[2019-06-15] MEDS: SYNTHROID 112 mcg TAB PO SCH (11:57)
[2019-06-15] MEDS: NEURONTIN CAP 100 MG PO SCH ×2 (11:57→21:13)
[2019-06-15] MEDS: LEXAPRO PO SCH (11:57)
[2019-06-15] MEDS: KLONOPIN TAB 0.5 MG PO SCH (11:57)
[2019-06-15] MEDS: PriLOSEC PO SCH (11:57)
[2019-06-15] MEDS: NORVASC TAB 10 MG PO SCH (11:58)
--- NOTE | 2019-06-15 15:21 | PCM.PROG ---
Progress Note - Progress Note for Day of Date of Exam: 06/13/19 - Subjective Subjective: IS BEING TREATED FOR A DISLODGED PERCUTANEOUS TUBE, PANCREATIC CANCER, RENAL FAILURE, AND ANEMIA. SHE HAS RECEIVED ONE UNIT OF PRBC SINCE ADMISSION. FEELS THAT THE TUBE NEEDS REPLACEMENT, BUT IS AWAITING AN AVAILABLE CATHETER. HE PLANS TO REPLACE CATHETER ON SATURDAY. TODAY, PATIENT IS ALERT AND ORIENTED, SITTING UP ON THE SIDE OF THE BED ON MORNING ROUNDS. THERE CONTINUES TO BE DRAINAGE FROM SITE. HER VITALS THIS ELIE ARE: 98.5-67-18-96%-132/63. LABS WERE OBTAINED. ABNORMAL LAB VALUES INCLUDE THE FOLLOWING: RBC 2.72, HGB 8.4, HCT 25.1, CHLORIDE 110, BUN 44, CREATININE 3.51, CALCIUM 8.1, ALT 8, ALBUMIN 2.0, GLOBULIN 5.2. SHE IS CURRENTLY RECEIVING NORMAL SALINE AT 50 ML/HR, IV PROCALAMINE AT 50 ML/HR AND ALBUMIN 25% IV DAILY, RESPIRATORY TX, ROCEPHIN 1G IV DAILY, AND HOME MEDICATIONS WERE RESUMED. WE WILL CONTINUE WITH CURRENT PLAN OF CARE TODAY. OTHERWISE, WE WILL FOLLOW UP WITH AM LABS AND CONTINUE TO MONITOR. - Past Medical Family Social History Past Med/Fam/Surg Hx: No changes since H&P Allergies: Allergies No Known Drug Allergies Allergy (Verified 04/29/19 16:57) - Review of Systems ROS: No change since H&P - Vital Signs and I&O's Vital Signs: Temperature 98 F Pulse Rate [Left Brachial] 84 Pulse Rate [Right Radial] 83 Pulse Rate 70 Respiratory Rate 18 Blood Pressure [Left Arm] 127/65 Blood Pressure [Right Arm] 115/56 Blood Pressure 135/63 O2 Sat by Pulse Oximetry 94 Intake and Output: Intake & Output 06/13/19 06/14/19 06/15/19 06/16/19 11:59 11:59 11:59 11:59 Intake Total 960 / 960 460 / 460 2576 / 2576 Output Total Balance 960 / 960 460 / 460 2566 / 2566 - Physical Exam Oriented: Normal Eyes: Normal Ear: Normal Nose: Normal Throat: Normal Respiratory: Generalized, Diminished Cardiovascular: Normal. negative: S3, S4, Murmur, Edema : Normal Auscultation: Bowel Sounds: Normal Palpation: Normal Tenderness: Epigastric (epigastric and RUQ tendrness with bile genesis around the drainage catheter ) Skin: Red (REDNESS FROM DRAIN SITE ) Musculoskeletal: Normal Psychiatric: Normal Mood Description: Calm Affect: Normal Speech Pattern: Clear, Appropriate - Laboratory and Diagnostics Result Diagrams: 06/15/19 05:14 06/15/19 05:14 Labs: Laboratory WBC 10.2 X10^3/uL (3.6-10.0) H 06/15/19 05:14 RBC 2.81 X10^6/uL (3.5-5.4) L 06/15/19 05:14 Hgb 8.7 g/dL (12.0-16.0) L 06/15/19 05:14 Hct 26.2 % (36.0-47.0) L 06/15/19 05:14 MCV 93.0 fL (80.0-100.0) 06/15/19 05:14 MCH 31.1 pg (27.0-34.0) 06/15/19 05:14 MCHC 33.4 g/dL (33.0-35.0) 06/15/19 05:14 RDW 13.0 % (11.6-16.5) 06/15/19 05:14 Plt Count 269 X10^3/uL (150.0-450.0) 06/15/19 05:14 Plt Count Comment Adequate (ADEQUATE) 06/10/19 20:30 MPV 7.7 fL (7.4-11.0) 06/15/19 05:14 Neut % (Auto) 62.7 % (42.0-75.0) 06/15/19 05:14 Lymph % (Auto) 25.8 % (21.0-51.0) 06/15/19 05:14 [place] % (Auto) 8.8 % (0.0-13.0) 06/15/19 05:14 Eos % (Auto) 2.4 % (0.9-2.9) 06/15/19 05:14 Baso % (Auto) 0.3 % (0.2-1.0) 06/15/19 05:14 Neut # (Auto) 6.4 x10^3/uL (2.2-4.8) H 06/15/19 05:14 Lymph # (Auto) 2.6 X10^3/uL (1.3-2.9) 06/15/19 05:14 [place] # (Auto) 0.9 x10^3/uL (0.3-0.8) H 06/15/19 05:14 Eos # (Auto) 0.3 x10^3/uL (0.0-0.2) H 06/15/19 05:14 Baso # (Auto) 0.0 X10^3/uL (0.0-0.1) 06/15/19 05:14 Absolute Nucleated RBC 0.0 /100WBC 06/15/19 05:14 Plt Morphology Comment Normal (NORMAL) 06/10/19 20:30 RBC Morphology Normal (NORMAL) 06/10/19 20:30 Hypochromasia Slight A 06/10/19 11:39 Target Cells Few 06/10/19 11:39 Sodium 142 mmol/L (136-145) 06/15/19 05:14 Corrected Sodium TNP 06/15/19 05:14 Potassium 5.2 mmol/L (3.5-5.1) H 06/15/19 05:14 Chloride 110 mmol/L (98-107) H 06/15/19 05:14 Carbon Dioxide 21.6 mmol/L (21-32) 06/15/19 05:14 BUN 36 mg/dL (7-18) H 06/15/19 05:14 Creatinine 3.11 mg/dL (0.55-1.02) H 06/15/19 05:14 Est GFR (MDRD) Af Amer 18 (>60) L 06/15/19 05:14 Est GFR (MDRD) Non-Af 15 (>60) L 06/15/19 05:14 Glucose 103 mg/dL (65-99) H 06/15/19 05:14 Calcium 8.3 mg/dL (8.5-10.1) L 06/15/19 05:14 Corrected Calcium 9.5 mg/dL (8.5-10.1) 06/15/19 05:14 Total Bilirubin 0.60 mg/dL (0.2-1.0) 06/15/19 05:14 AST 21 Units/L (15-37) 06/15/19 05:14 ALT < 6 Units/L (12-78) L 06/15/19 05:14 Alkaline Phosphatase 80 Units/L (46-116) 06/15/19 05:14 Total Protein 7.6 g/dL (6.4-8.2) 06/15/19 05:14 Albumin 2.5 g/dL (3.4-5.0) L 06/15/19 05:14 Globulin 5.1 g/dL (2.5-4.5) H 06/15/19 05:14 Albumin/Globulin Ratio 0.5 Ratio (1.1-2.1) L 06/15/19 05:14 Blood Type B POSITIVE 06/10/19 18:13 Antibody Screen Negative 06/10/19 18:13 Crossmatch See Detail 06/10/19 18:13 - Plan (1) Anemia in chronic illness Status: Acute Plan: MONITOR H&H (2) Pancreatic cancer Status: Chronic Qualifiers: Pancreatic malignancy location: unspecified Qualified Code(s): C25.9 - Malignant neoplasm of pancreas, unspecified (3) Hyperlipidemia Status: Chronic Qualifiers: Hyperlipidemia type: mixed hyperlipidemia Qualified Code(s): E78.2 - Mixed hyperlipidemia (4) GERD (gastroesophageal reflux disease) Status: Chronic Qualifiers: Esophagitis presence: esophagitis presence not specified Qualified Code(s): K21.9 - Gastro-esophageal reflux disease without esophagitis Plan: CONTINUE HOME MEDS (5) Coronary artery disease Status: Chronic Qualifiers: Coronary Disease-Associated Artery/Lesion type: [place] artery [place] vs. 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
--- NOTE | 2019-06-15 15:58 | PCM.PROG ---
Progress Note - Progress Note for Day of Date of Exam: 06/14/19 - Subjective Subjective: IS BEING TREATED FOR A DISLODGED PERCUTANEOUS TUBE, PANCREATIC CANCER, RENAL FAILURE, AND ANEMIA. SHE HAS RECEIVED ONE UNIT OF PRBC SINCE ADMISSION. FEELS THAT THE TUBE NEEDS REPLACEMENT, BUT IS AWAITING AN AVAILABLE CATHETER. HE PLANS TO REPLACE CATHETER ON TOMORROW. TODAY, PATIENT IS ALERT AND ORIENTED, SITTING UP ON THE SIDE OF THE BED ON MORNING ROUNDS. THERE CONTINUES TO BE DRAINAGE FROM SITE. HER VITALS THIS ELEI ARE: 98.8-72-18-94%RA-121/58. LABS WERE OBTAINED. ABNORMAL LAB VALUES INCLUDE THE FOLLOWING: RBC 2.54, HGB 8.0, HCT 23.5, CHLORIDE 110, BUN 42, CREATININE 3.43, CALCIUM 7.8, ALT 10, ALBUMIN 1.9, GLOBULIN 5.0. SHE IS CURRENTLY RECEIVING NORMAL SALINE AT 50 ML/HR, IV PROCALAMINE AT 50 ML/HR AND ALBUMIN 25% IV DAILY, RESPIRATORY TX, ROCEPHIN 1G IV DAILY, AND HOME MEDICATIONS WERE RESUMED. WE WILL CONTINUE WITH CURRENT PLAN OF CARE TODAY. OTHERWISE, WE WILL FOLLOW UP WITH AM LABS AND CONTINUE TO MONITOR. - Past Medical Family Social History Past Med/Fam/Surg Hx: No changes since H&P Allergies: Allergies No Known Drug Allergies Allergy (Verified 04/29/19 16:57) - Review of Systems ROS: No change since H&P - Vital Signs and I&O's Vital Signs: Temperature 98 F Pulse Rate [Left Brachial] 84 Pulse Rate [Right Radial] 83 Pulse Rate 70 Respiratory Rate 18 Blood Pressure [Left Arm] 127/65 Blood Pressure [Right Arm] 115/56 Blood Pressure 135/63 O2 Sat by Pulse Oximetry 94 Intake and Output: Intake & Output 06/13/19 06/14/19 06/15/19 06/16/19 11:59 11:59 11:59 11:59 Intake Total 960 / 960 460 / 460 2576 / 2576 Output Total Balance 960 / 960 460 / 460 2566 / 2566 - Physical Exam Oriented: Normal Eyes: Normal Ear: Normal Nose: Normal Throat: Normal Respiratory: Generalized, Diminished Cardiovascular: Normal. negative: S3, S4, Murmur, Edema : Normal Auscultation: Bowel Sounds: Normal Palpation: Normal Tenderness: Epigastric (epigastric and RUQ tendrness with bile genesis around the drainage catheter ) Skin: Red (REDNESS FROM DRAIN SITE ) Musculoskeletal: Normal Psychiatric: Normal Mood Description: Calm Affect: Normal Speech Pattern: Clear, Appropriate - Laboratory and Diagnostics Result Diagrams: 06/15/19 05:14 06/15/19 05:14 Labs: Laboratory WBC 10.2 X10^3/uL (3.6-10.0) H 06/15/19 05:14 RBC 2.81 X10^6/uL (3.5-5.4) L 06/15/19 05:14 Hgb 8.7 g/dL (12.0-16.0) L 06/15/19 05:14 Hct 26.2 % (36.0-47.0) L 06/15/19 05:14 MCV 93.0 fL (80.0-100.0) 06/15/19 05:14 MCH 31.1 pg (27.0-34.0) 06/15/19 05:14 MCHC 33.4 g/dL (33.0-35.0) 06/15/19 05:14 RDW 13.0 % (11.6-16.5) 06/15/19 05:14 Plt Count 269 X10^3/uL (150.0-450.0) 06/15/19 05:14 Plt Count Comment Adequate (ADEQUATE) 06/10/19 20:30 MPV 7.7 fL (7.4-11.0) 06/15/19 05:14 Neut % (Auto) 62.7 % (42.0-75.0) 06/15/19 05:14 Lymph % (Auto) 25.8 % (21.0-51.0) 06/15/19 05:14 Saline % (Auto) 8.8 % (0.0-13.0) 06/15/19 05:14 Eos % (Auto) 2.4 % (0.9-2.9) 06/15/19 05:14 Baso % (Auto) 0.3 % (0.2-1.0) 06/15/19 05:14 Neut # (Auto) 6.4 x10^3/uL (2.2-4.8) H 06/15/19 05:14 Lymph # (Auto) 2.6 X10^3/uL (1.3-2.9) 06/15/19 05:14 Saline # (Auto) 0.9 x10^3/uL (0.3-0.8) H 06/15/19 05:14 Eos # (Auto) 0.3 x10^3/uL (0.0-0.2) H 06/15/19 05:14 Baso # (Auto) 0.0 X10^3/uL (0.0-0.1) 06/15/19 05:14 Absolute Nucleated RBC 0.0 /100WBC 06/15/19 05:14 Plt Morphology Comment Normal (NORMAL) 06/10/19 20:30 RBC Morphology Normal (NORMAL) 06/10/19 20:30 Hypochromasia Slight A 06/10/19 11:39 Target Cells Few 06/10/19 11:39 Sodium 142 mmol/L (136-145) 06/15/19 05:14 Corrected Sodium TNP 06/15/19 05:14 Potassium 5.2 mmol/L (3.5-5.1) H 06/15/19 05:14 Chloride 110 mmol/L (98-107) H 06/15/19 05:14 Carbon Dioxide 21.6 mmol/L (21-32) 06/15/19 05:14 BUN 36 mg/dL (7-18) H 06/15/19 05:14 Creatinine 3.11 mg/dL (0.55-1.02) H 06/15/19 05:14 Est GFR (MDRD) Af Amer 18 (>60) L 06/15/19 05:14 Est GFR (MDRD) Non-Af 15 (>60) L 06/15/19 05:14 Glucose 103 mg/dL (65-99) H 06/15/19 05:14 Calcium 8.3 mg/dL (8.5-10.1) L 06/15/19 05:14 Corrected Calcium 9.5 mg/dL (8.5-10.1) 06/15/19 05:14 Total Bilirubin 0.60 mg/dL (0.2-1.0) 06/15/19 05:14 AST 21 Units/L (15-37) 06/15/19 05:14 ALT < 6 Units/L (12-78) L 06/15/19 05:14 Alkaline Phosphatase 80 Units/L (46-116) 06/15/19 05:14 Total Protein 7.6 g/dL (6.4-8.2) 06/15/19 05:14 Albumin 2.5 g/dL (3.4-5.0) L 06/15/19 05:14 Globulin 5.1 g/dL (2.5-4.5) H 06/15/19 05:14 Albumin/Globulin Ratio 0.5 Ratio (1.1-2.1) L 06/15/19 05:14 Blood Type B POSITIVE 06/10/19 18:13 Antibody Screen Negative 06/10/19 18:13 Crossmatch See Detail 06/10/19 18:13 - Plan (1) Anemia in chronic illness Status: Acute Plan: MONITOR H&H (2) Pancreatic cancer Status: Chronic Qualifiers: Pancreatic malignancy location: unspecified Qualified Code(s): C25.9 - Malignant neoplasm of pancreas, unspecified (3) Hyperlipidemia Status: Chronic Qualifiers: Hyperlipidemia type: mixed hyperlipidemia Qualified Code(s): E78.2 - Mixed hyperlipidemia (4) GERD (gastroesophageal reflux disease) Status: Chronic Qualifiers: Esophagitis presence: esophagitis presence not specified Qualified Code(s): K21.9 - Gastro-esophageal reflux disease without esophagitis Plan: CONTINUE HOME MEDS (5) Coronary artery disease Status: Chronic Qualifiers: Coronary Disease-Associated Artery/Lesion type: [place] artery [place] vs. 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
[2019-06-15] MEDS: NORCO 5/325 MG TAB PO PRN (21:11)
[2019-06-16] MEDS: ZOFRAN TAB 4 MG PO SCH ×3 (01:12→09:18)
[2019-06-16] MEDS: NORCO 5/325 MG TAB PO PRN (04:11)
[2019-06-16] MEDS: NS 1000 ML 1,000 ML IV SCH (04:26)
[2019-06-16 05:33] LABS: BASOPHILS % (AUTO) 0.3 % (0.2-1.0); EOSINOPHILS # (AUTO) 0.2 x10^3/uL (0.0-0.2); EOSINOPHILS % (AUTO) 1.6 % (0.9-2.9); HEMATOCRIT 23.6 % (36.0-47.0); MEAN CORPUSCULAR HEMOGLOBIN 31.4 pg (27.0-34.0); MEAN CORPUSCULAR HGB CONC 33.9 g/dL (33.0-35.0); MEAN CORPUSCULAR VOLUME 92.7 fL (80.0-100.0); MEAN PLATELET VOLUME 7.7 fL (7.4-11.0); MONOCYTES # (AUTO) 0.9 x10^3/uL (0.3-0.8); MONOCYTES % (AUTO) 8.8 % (0.0-13.0); NEUTROPHILS # (AUTO) 7.3 x10^3/uL (2.2-4.8); NEUTROPHILS % (AUTO) 70.3 % (42.0-75.0); PLATELET COUNT 239 X10^3/uL (150.0-450.0); RED BLOOD COUNT 2.55 X10^6/uL (3.5-5.4); WHITE BLOOD COUNT 10.4 X10^3/uL (3.6-10.0)
[2019-06-16 05:39] LABS: ALBUMIN 2.5 g/dL (3.4-5.0); CALCIUM 8.1 mg/dL (8.5-10.1); CARBON DIOXIDE 20.3 mmol/L (21-32); COR CA(FOR HYPOALB) 9.3 mg/dL (8.5-10.1); CREATININE 2.87 mg/dL (0.55-1.02)
[2019-06-16] MEDS: PROCALAMINE 3 % 1,000 ML IV SCH ×2 (06:00→09:19)
[2019-06-16] MEDS ORDERED: LEXAPRO ONE (08:37)
[2019-06-16] MEDS ORDERED: NS 100 ML IV + SPIKE MINIBAG* 100 ML IV ONE (08:38)
--- NOTE | 2019-06-16 08:51 | PCM.PROG ---
Progress Note - Progress Note for Day of Date of Exam: 06/15/19 - Subjective Subjective: IS BEING TREATED FOR A DISLODGED PERCUTANEOUS TUBE, PANCREATIC CANCER, RENAL FAILURE, AND ANEMIA. SHE HAS RECEIVED ONE UNIT OF PRBC SINCE ADMISSION. TODAY, PATIENT IS ALERT AND ORIENTED, SITTING UP ON THE SIDE OF THE BED ON MORNING ROUNDS. THERE CONTINUES TO BE DRAINAGE FROM SITE. HER VITALS THIS MRFINA ARE: 99.2-83-18-94%NC-115/56. LABS WERE OBTAINED. ABNORMAL LAB VALUES INCLUDE THE FOLLOWING: WBC 10.2, RBC 2.81, HGB 8.7, HCT 26.2, POTASSIUM 5.2, CHLORIDE 110, BUN 36, CREATININE 3.11, GLUCOSE 103, CALCIUM 8.3, ALT <6, ALBUMIN 2.5, GLOBULIN 5.1. SHE IS CURRENTLY RECEIVING NORMAL SALINE AT 50 ML/HR, IV PROCALAMINE AT 50 ML/HR AND ALBUMIN 25% IV DAILY, RESPIRATORY TX, ROCEPHIN 1G IV DAILY, AND HOME MEDICATIONS WERE RESUMED. PLANS TO TAKE PATIENT TO THE OR THIS MORNING TO REPLACE DRAIN. WE ARE IN AGREEMENT WITH PLANS. WE WILL CONTINUE WITH CURRENT PLAN OF CARE TODAY. OTHERWISE, WE WILL FOLLOW UP WITH AM LABS AND CONTINUE TO MONITOR. - Past Medical Family Social History Past Med/Fam/Surg Hx: No changes since H&P Allergies: Allergies No Known Drug Allergies Allergy (Verified 04/29/19 16:57) - Review of Systems ROS: No change since H&P - Vital Signs and I&O's Vital Signs: Temperature 99.9 F Pulse Rate [Left Brachial] 84 Pulse Rate [Right Radial] 84 Pulse Rate 72 Respiratory Rate 24 Blood Pressure [Left Arm] 127/65 Blood Pressure [Right Arm] 136/63 Blood Pressure 135/63 O2 Sat by Pulse Oximetry 96 Intake and Output: Intake & Output 06/13/19 06/14/19 06/15/19 06/16/19 11:59 11:59 11:59 11:59 Intake Total 960 / 960 460 / 460 2576 / 2576 1690 / 1690 Output Total 139 / 139 Balance 960 / 960 460 / 460 2566 / 2566 1551 / 1551 - Physical Exam Oriented: Normal Eyes: Normal Ear: Normal Nose: Normal Throat: Normal Respiratory: Generalized, Diminished Cardiovascular: Normal. negative: S3, S4, Murmur, Edema : Normal Auscultation: Bowel Sounds: Normal Palpation: Normal Tenderness: Epigastric (epigastric and RUQ tendrness with bile genesis around the drainage catheter ) Skin: Red (REDNESS FROM DRAIN SITE ) Musculoskeletal: Normal Psychiatric: Normal Mood Description: Calm Affect: Normal Speech Pattern: Clear, Appropriate - Laboratory and Diagnostics Result Diagrams: 06/16/19 04:52 06/16/19 04:52 Labs: Laboratory WBC 10.4 X10^3/uL (3.6-10.0) H 06/16/19 04:52 RBC 2.55 X10^6/uL (3.5-5.4) L 06/16/19 04:52 Hgb 8.0 g/dL (12.0-16.0) L 06/16/19 04:52 Hct 23.6 % (36.0-47.0) L 06/16/19 04:52 MCV 92.7 fL (80.0-100.0) 06/16/19 04:52 MCH 31.4 pg (27.0-34.0) 06/16/19 04:52 MCHC 33.9 g/dL (33.0-35.0) 06/16/19 04:52 RDW 13.0 % (11.6-16.5) 06/16/19 04:52 Plt Count 239 X10^3/uL (150.0-450.0) 06/16/19 04:52 Plt Count Comment Adequate (ADEQUATE) 06/10/19 20:30 MPV 7.7 fL (7.4-11.0) 06/16/19 04:52 Neut % (Auto) 70.3 % (42.0-75.0) 06/16/19 04:52 Lymph % (Auto) 19.0 % (21.0-51.0) L 06/16/19 04:52 [place] % (Auto) 8.8 % (0.0-13.0) 06/16/19 04:52 Eos % (Auto) 1.6 % (0.9-2.9) 06/16/19 04:52 Baso % (Auto) 0.3 % (0.2-1.0) 06/16/19 04:52 Neut # (Auto) 7.3 x10^3/uL (2.2-4.8) H 06/16/19 04:52 Lymph # (Auto) 2.0 X10^3/uL (1.3-2.9) 06/16/19 04:52 [place] # (Auto) 0.9 x10^3/uL (0.3-0.8) H 06/16/19 04:52 Eos # (Auto) 0.2 x10^3/uL (0.0-0.2) 06/16/19 04:52 Baso # (Auto) 0.0 X10^3/uL (0.0-0.1) 06/16/19 04:52 Absolute Nucleated RBC 0.0 /100WBC 06/16/19 04:52 Plt Morphology Comment Normal (NORMAL) 06/10/19 20:30 RBC Morphology Normal (NORMAL) 06/10/19 20:30 Hypochromasia Slight A 06/10/19 11:39 Target Cells Few 06/10/19 11:39 Sodium 140 mmol/L (136-145) 06/16/19 04:52 Corrected Sodium 141 mmol/L (136-145) 06/16/19 04:52 Potassium 5.4 mmol/L (3.5-5.1) H 06/16/19 04:52 Chloride 110 mmol/L (98-107) H 06/16/19 04:52 Carbon Dioxide 20.3 mmol/L (21-32) L 06/16/19 04:52 BUN 36 mg/dL (7-18) H 06/16/19 04:52 Creatinine 2.87 mg/dL (0.55-1.02) H 06/16/19 04:52 Est GFR (MDRD) Af Amer 20 (>60) L 06/16/19 04:52 Est GFR (MDRD) Non-Af 16 (>60) L 06/16/19 04:52 Glucose 134 mg/dL (65-99) H 06/16/19 04:52 Calcium 8.1 mg/dL (8.5-10.1) L 06/16/19 04:52 Corrected Calcium 9.3 mg/dL (8.5-10.1) 06/16/19 04:52 Total Bilirubin 0.50 mg/dL (0.2-1.0) 04/28/20 04:52 AST 15 Units/L (15-37) 06/16/19 04:52 ALT 9 Units/L (12-78) L 06/16/19 04:52 Alkaline Phosphatase 66 Units/L (46-116) 06/16/19 04:52 Total Protein 7.0 g/dL (6.4-8.2) 06/16/19 04:52 Albumin 2.5 g/dL (3.4-5.0) L 06/16/19 04:52 Globulin 4.5 g/dL (2.5-4.5) 06/16/19 04:52 Albumin/Globulin Ratio 0.6 Ratio (1.1-2.1) L 06/16/19 04:52 Blood Type B POSITIVE 06/10/19 18:13 Antibody Screen Negative 06/10/19 18:13 Crossmatch See Detail 06/10/19 18:13 - Plan (1) Anemia in chronic illness Status: Acute Plan: MONITOR H&H (2) Pancreatic cancer Status: Chronic Qualifiers: Pancreatic malignancy location: unspecified Qualified Code(s): C25.9 - Malignant neoplasm of pancreas, unspecified (3) Hyperlipidemia Status: Chronic Qualifiers: Hyperlipidemia type: mixed hyperlipidemia Qualified Code(s): E78.2 - Mixed hyperlipidemia Plan: CONTINUE HOME MEDS (4) GERD (gastroesophageal reflux disease) Status: Chronic Qualifiers: Esophagitis presence: esophagitis presence not specified Qualified Code(s): K21.9 - Gastro-esophageal reflux disease without esophagitis Plan: CONTINUE HOME MEDS (5) Coronary artery disease Status: Chronic Qualifiers: Coronary Disease-Associated Artery/Lesion type: [place] artery [place] vs. 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
[2019-06-16] MEDS: ALBUMIN HUMAN 25%- 100 ML 100 ML IV SCH (09:17)
[2019-06-16] MEDS: ROCEPHIN VIAL 1 GRAM IV SCH (09:17)
[2019-06-16] MEDS: PriLOSEC PO SCH (09:18)
[2019-06-16] MEDS: COREG TAB 12.5 MG PO SCH (09:18)
[2019-06-16] MEDS: NORVASC TAB 10 MG PO SCH (09:18)
[2019-06-16] MEDS: SYNTHROID 112 mcg TAB PO SCH (09:18)
[2019-06-16] MEDS: NEURONTIN CAP 100 MG PO SCH (09:19)
[2019-06-16] MEDS: KLONOPIN TAB 0.5 MG PO SCH (09:19)
[2019-06-16] MEDS: LEXAPRO PO SCH (09:19)
--- NOTE | 2019-06-16 09:19 | DR.UPDATE ---
H&P Update History and Physical Update: History and Physical reviewed and patient examined. Changes noted: NO Yes with the following:H&p reviewed/Pt examined. will place central line for TPN H&P Reviewed: Yes Patient was examined?: Yes Procedures (ALL) - Central Line Placement PCM.CLCO: verbal consent Time out performed: Yes Patient placed pm monitor/pulse ox: Yes MD prep: mask, gown, gloves, other Centrial line prep: chlorhexidine scrub Local anesthsia used: lidocane 1% Ultrasound used for placement: Yes (right IJ id'd via u/s. ) Central line lumen ininserted: triple Post procedure: good blood return, all ports aspirated, flushed,capped, sterile dressing applied Post procedure xray: tip oc catheter in good position, no pneumothorax seen Patient tolerated procedure: Yes Complications: none
--- NOTE | 2019-06-16 09:29 | DR.PROGNOT ---
Hospital Progress Notes - Progress Note for Day of: Progress Note Date: 06/16/19 - Chief Complaint Chief Complaint: s/p placement of new biliary drainage catheter .. draining clear bile . no abdominal pain . no nausea or vomiting . Bilirubin and LFT are normal . - Past Medical Family Social History Past Med/Fam/Surg Hx: No changes since H&P Allergies: Allergies No Known Drug Allergies Allergy (Verified 04/29/19 16:57) - Review Of Systems ROS: No change since H&P - Vital Signs Vital Signs: Temperature 99.9 F Pulse Rate [Left Brachial] 84 Pulse Rate [Right Radial] 84 Pulse Rate 72 Respiratory Rate 24 Blood Pressure [Left Arm] 127/65 Blood Pressure [Right Arm] 136/63 Blood Pressure 135/63 O2 Sat by Pulse Oximetry 96 - Physical Exam Oriented: Normal Eyes: Normal Ear: Normal Nose: Normal Throat: Normal Respiratory: Generalized, Diminished Cardiovascular: Normal. negative: S3, S4, Murmur, Edema : Normal GI:Auscultation: Normal GI:Palpation: Normal GI: Tenderness: Normal Skin: Red (REDNESS FROM DRAIN SITE ) Musculoskeletal: Normal Psychiatric: Normal Mood Description: Calm Affect: Normal Speech Pattern: Clear, Appropriate - Laboratory and Diagnostics Result Diagrams: 06/16/19 04:52 06/16/19 04:52 Labs: 06/15/19 09:28 Catheter Tip - Other - Preliminary Laboratory WBC 10.4 X10^3/uL (3.6-10.0) H 06/16/19 04:52 RBC 2.55 X10^6/uL (3.5-5.4) L 06/16/19 04:52 Hgb 8.0 g/dL (12.0-16.0) L 06/16/19 04:52 Hct 23.6 % (36.0-47.0) L 06/16/19 04:52 MCV 92.7 fL (80.0-100.0) 06/16/19 04:52 MCH 31.4 pg (27.0-34.0) 06/16/19 04:52 MCHC 33.9 g/dL (33.0-35.0) 06/16/19 04:52 RDW 13.0 % (11.6-16.5) 06/16/19 04:52 Plt Count 239 X10^3/uL (150.0-450.0) 06/16/19 04:52 Plt Count Comment Adequate (ADEQUATE) 06/10/19 20:30 MPV 7.7 fL (7.4-11.0) 06/16/19 04:52 Neut % (Auto) 70.3 % (42.0-75.0) 06/16/19 04:52 Lymph % (Auto) 19.0 % (21.0-51.0) L 06/16/19 04:52 [place] % (Auto) 8.8 % (0.0-13.0) 06/16/19 04:52 Eos % (Auto) 1.6 % (0.9-2.9) 06/16/19 04:52 Baso % (Auto) 0.3 % (0.2-1.0) 06/16/19 04:52 Neut # (Auto) 7.3 x10^3/uL (2.2-4.8) H 06/16/19 04:52 Lymph # (Auto) 2.0 X10^3/uL (1.3-2.9) 06/16/19 04:52 [place] # (Auto) 0.9 x10^3/uL (0.3-0.8) H 06/16/19 04:52 Eos # (Auto) 0.2 x10^3/uL (0.0-0.2) 06/16/19 04:52 Baso # (Auto) 0.0 X10^3/uL (0.0-0.1) 06/16/19 04:52 Absolute Nucleated RBC 0.0 /100WBC 06/16/19 04:52 Plt Morphology Comment Normal (NORMAL) 06/10/19 20:30 RBC Morphology Normal (NORMAL) 06/10/19 20:30 Hypochromasia Slight A 06/10/19 11:39 Target Cells Few 06/10/19 11:39 Sodium 140 mmol/L (136-145) 06/16/19 04:52 Corrected Sodium 141 mmol/L (136-145) 06/16/19 04:52 Potassium 5.4 mmol/L (3.5-5.1) H 06/16/19 04:52 Chloride 110 mmol/L (98-107) H 06/16/19 04:52 Carbon Dioxide 20.3 mmol/L (21-32) L 06/16/19 04:52 BUN 36 mg/dL (7-18) H 06/16/19 04:52 Creatinine 2.87 mg/dL (0.55-1.02) H 06/16/19 04:52 Est GFR (MDRD) Af Amer 20 (>60) L 06/16/19 04:52 Est GFR (MDRD) Non-Af 16 (>60) L 06/16/19 04:52 Glucose 134 mg/dL (65-99) H 06/16/19 04:52 Calcium 8.1 mg/dL (8.5-10.1) L 06/16/19 04:52 Corrected Calcium 9.3 mg/dL (8.5-10.1) 06/16/19 04:52 Total Bilirubin 0.50 mg/dL (0.2-1.0) 06/16/19 04:52 AST 15 Units/L (15-37) 06/16/19 04:52 ALT 9 Units/L (12-78) L 06/16/19 04:52 Alkaline Phosphatase 66 Units/L (46-116) 06/16/19 04:52 Total Protein 7.0 g/dL (6.4-8.2) 06/16/19 04:52 Albumin 2.5 g/dL (3.4-5.0) L 06/16/19 04:52 Globulin 4.5 g/dL (2.5-4.5) 06/16/19 04:52 Albumin/Globulin Ratio 0.6 Ratio (1.1-2.1) L 06/16/19 04:52 Blood Type B POSITIVE 06/10/19 18:13 Antibody Screen Negative 06/10/19 18:13 Crossmatch See Detail 06/10/19 18:13 - Assessment and Plan 1: pancreatic ca with CBD obstruction . . s/p placement of new biliary drainage catheter . anemia . CKD. will follow in one week and maybe clamp the catheter and allow internal drainage . - Problem Patient Problems: Patient Problems Hyperlipidemia (Chronic) E78.5 GERD (gastroesophageal reflux disease) (Chronic) K21.9 Coronary artery disease (Chronic) I25.10 Anemia in chronic illness (Acute) D63.8 Obstructive jaundice (Acute) K83.1 Pancreatic cancer (Chronic) C25.9 CKD (chronic kidney disease) stage 5, GFR less than 15 ml/min (Chronic) N18.5 Benign essential HTN (Chronic) I10 Hypothyroidism (Chronic) E03.9
[2019-06-16 09:52] VITALS: BP 123/58
== END 2019-06-16 12:10 | disposition home health service (06) | DRG 919 ==
LOC: MED/SURG 11:18 → ER 11:18 → OBSVTOIN 12:55 → MED/SURG 13:19
PROVIDERS: ADMIT Internal Medicine; ATTEND Internal Medicine
PROC: CLINEPL (2019-06-15 09:00)
DX: R91.8 Other nonspecific abnormal finding of lung field; J90 Pleural effusion, not elsewhere classified; D63.8 Anemia in other chronic diseases classified elsewhere; N18.5 Chronic kidney disease, stage 5; T85.628A Displacement of other specified internal prosthetic devices, implants and grafts, initial encounter; J98.11 Atelectasis; J44.9 Chronic obstructive pulmonary disease, unspecified; E78.2 Mixed hyperlipidemia; C25.9 Malignant neoplasm of pancreas, unspecified; I25.10 Atherosclerotic heart disease of native coronary artery without angina pectoris; I12.0 Hypertensive chronic kidney disease with stage 5 chronic kidney disease or end stage renal disease; K21.9 Gastro-esophageal reflux disease without esophagitis; T85.898A Other specified complication of other internal prosthetic devices, implants and grafts, initial encounter; K83.1 Obstruction of bile duct; E03.9 Hypothyroidism, unspecified

== ENCOUNTER 2019-08-18 16:44 | Observation (INO) ==
[2019-08-18 17:00] VITALS: BMI 21.2
[2019-08-18 17:35] LABS: BASOPHILS % (AUTO) 0.7 % (0.2-1.0); EOSINOPHILS # (AUTO) 0.2 x10^3/uL (0.0-0.2); EOSINOPHILS % (AUTO) 2.4 % (0.9-2.9); HEMATOCRIT 24.7 % (36.0-47.0); HEMOGLOBIN 8.1 g/dL (12.0-16.0); LYMPHOCYTES # (AUTO) 2.4 X10^3/uL (1.3-2.9); LYMPHOCYTES % (AUTO) 32.4 % (21.0-51.0); MEAN CORPUSCULAR HEMOGLOBIN 28.8 pg (27.0-34.0); MEAN CORPUSCULAR HGB CONC 32.7 g/dL (33.0-35.0); MEAN CORPUSCULAR VOLUME 87.9 fL (80.0-100.0); MEAN PLATELET VOLUME 7.7 fL (7.4-11.0); MONOCYTES # (AUTO) 0.8 x10^3/uL (0.3-0.8); MONOCYTES % (AUTO) 10.7 % (0.0-13.0); NEUTROPHILS % (AUTO) 53.8 % (42.0-75.0); PLATELET COUNT 273 X10^3/uL (150.0-450.0); RED BLOOD COUNT 2.81 X10^6/uL (3.5-5.4); RED CELL DISTRIBUTION WIDTH 13.8 % (11.6-16.5); WHITE BLOOD COUNT 7.5 X10^3/uL (3.6-10.0)
[2019-08-18 17:42] LABS: ALBUMIN 2.4 g/dL (3.4-5.0); CALCIUM 8.5 mg/dL (8.5-10.1); CARBON DIOXIDE 17.3 mmol/L (21-32); COR CA(FOR HYPOALB) 9.8 mg/dL (8.5-10.1); CREATININE 4.46 mg/dL (0.55-1.02); TOTAL PROTEIN 8.4 g/dL (6.4-8.2)
--- NOTE | 2019-08-18 21:09 | DR.GENAD ---
HPI Time Seen Time Seen by Provider: 08/18/19 19:12 PCP Primary Care Physician: CHRIS HPI Comment HPI Comment: Patient with pancreatic drain leak possibly secondary to fall 1 week ago, associated with right sided abdominal pain, no n/v/d. Dr. Lowe requested to admit the patient for eval in AM. She otherwise reports no negative symptoms. Complaint/Symptoms Chief Complaint:: PT. HAS A DRAIN TO PANCREATIC DUCT FROM SURGERY IN APRIL OF 2019. PT. WAS ADMITTED IN MAY OF 2019 FOR COMPLICATIONS WITH DRAIN. PT. HAS HAD NO PROBLEMS UNTIL 2-3 DAYS AGO WITH DRAIN. DAUGHTER STATES THE AREA HAS BEEN LEAKING. PT. HAD A FALL LAST WEEK AND DAUGHTER SEEMS TO THINK THAT IS WHAT IS CAUSING THE PROBLEM. AREA IS COVERED WITH DRESSING AT TIME OF TRIAGE. PT. C/O PAIN TO RIGTH SIDE OF ABDOMEN. COVID-19 Coronavirus risk:travel/contact w/high risk person: No Has patient experienced Coronavirus symptoms: No Source History Provided: Patient Mode of Arrival Mode of Arrival: Ambulatory Timing Onset of Chief Complaint: 08/15/19 PMH PMH Past Medical History: Yes Past Medical History: Anemia, COPD, Hypertension and Hypothyroidism Past Surgical History: Yes Surgical History: Appendectomy, Cholecystectomy and Hysterectomy Family History History of Family Medical Conditions: Yes Family Medical History: Hypertension Social History Does patient currently use any type of tobacco product: No Have you used tobacco products in the last 12 months: No Type of Tobacco Use: None Does any household member use tobacco: No Alcohol Use: None Do you use any recreational Drugs:: No Lives With: Family Lives Where: Home Travel Risk Coronavirus risk:travel/contact w/high risk person: No Has patient experienced Coronavirus symptoms: No Infectious screening In the last 2 months have you had wt loss of >10#?: NO Have you had fever, night sweats or hemotysis?: No Have you traveled outside the country in the last 6 months?: No Isolation: Standard ROS Review of Systems Constitutional: No Symptoms Reported Eyes: No Symptoms Reported ENTM: No Symptoms Reported Respiratoy: No Symptoms Reported Cardiovascular: No Symptoms Reported Gastrointestinal/Abdominal: See HPI Genitourinary: No Symptoms Reported Neurological: No Symptoms Reported Musculoskeletal: No Symptoms Reported Integumentary: No Symptoms Reported Hematologic/Lymphatic: No Symptoms Reported Endocrine: No Symptoms Reported Psychiatric: No Symptoms Reported All Other Systems: Reviewed and Negative PE Vital Signs Vitals: Temperature 97.5 F Pulse Rate 90 Respiratory Rate 17 Blood Pressure [Left Arm] 127/65 Blood Pressure [Right Arm] 123/58 Blood Pressure 138/67 O2 Sat by Pulse Oximetry 96 General Limitations: No Limitations General Appearance: Alert and In No Apparent Distress Head Head Exam: Normal Inspection and Atraumatic Eyes Eye exam: Normal Appearance ENT ENT Exam: Mucous Membranes Dry External Ear Exam: Normal External Inspection TM/Canal Exam: Bilateral: Normal Nose Exam: Normal Nose Exam Mouth Exam: Normal Inspection Throat Exam: Normal Inspection Neck Neck Exam: Normal Inspection Chest Chest Inspection: Normal Inspection Respiratory Respiratory Exam: Normal Lung Sounds Bilat Respiratory Exam: Bilateral: Clear to Auscultation Cardiovascular Cardiovascular Exam: Regular Rate and Normal Rhythm Abdominal Exam Abdominal Exam: Normal Bowel Sounds, Soft and Tenderness (Right sided tenderness); negative Normal Inspection (Drain in place in right abdomen), Distention, Guarding, Rebound and Rigidity Extremities Extremities Exam: Normal Inspection Back Back Exam: Normal Inspection Neurologic Neurological Exam: Alert and Oriented X3 Psychiatric Psychiatric Exam: Normal Affect and Normal Mood Skin Skin Exam: Warm, Dry, Intact and Normal Color COURSE Treatment Treatment: Labs concerning for potential QUE. Spoke with Dr. Venegas, patient will be admitted to medicine for QUE management, and seen by Dr. Lowe for surgical eval in AM. ROR Labs Reviewed Result Diagrams: 08/18/19 17:20 08/18/19 17:20 Laboratory: 08/18/19 17:15 Abdomen Gram Stain - Final WBC 7.5 X10^3/uL (3.6-10.0) 08/18/19 17:20 RBC 2.81 X10^6/uL (3.5-5.4) L 08/18/19 17:20 Hgb 8.1 g/dL (12.0-16.0) L 08/18/19 17:20 Hct 24.7 % (36.0-47.0) L 08/18/19 17:20 MCV 87.9 fL (80.0-100.0) 08/18/19 17:20 MCH 28.8 pg (27.0-34.0) 08/18/19 17:20 MCHC 32.7 g/dL (33.0-35.0) L 08/18/19 17:20 RDW 13.8 % (11.6-16.5) 08/18/19 17:20 Plt Count 273 X10^3/uL (150.0-450.0) 08/18/19 17:20 MPV 7.7 fL (7.4-11.0) 08/18/19 17:20 Neut % (Auto) 53.8 % (42.0-75.0) 08/18/19 17:20 Lymph % (Auto) 32.4 % (21.0-51.0) 08/18/19 17:20 [place] % (Auto) 10.7 % (0.0-13.0) 08/18/19 17:20 Eos % (Auto) 2.4 % (0.9-2.9) 08/18/19 17:20 Baso % (Auto) 0.7 % (0.2-1.0) 08/18/19 17:20 Neut # (Auto) 4.0 x10^3/uL (2.2-4.8) 08/18/19 17:20 Lymph # (Auto) 2.4 X10^3/uL (1.3-2.9) 08/18/19 17:20 [place] # (Auto) 0.8 x10^3/uL (0.3-0.8) 08/18/19 17:20 Eos # (Auto) 0.2 x10^3/uL (0.0-0.2) 08/18/19 17:20 Baso # (Auto) 0.0 X10^3/uL (0.0-0.1) 08/18/19 17:20 Absolute Nucleated RBC 0.0 /100WBC 08/18/19 17:20 Sodium 142 mmol/L (136-145) 08/18/19 17:20 Corrected Sodium 143 mmol/L (136-145) 08/18/19 17:20 Potassium 4.1 mmol/L (3.5-5.1) 08/18/19 17:20 Chloride 109 mmol/L (98-107) H 08/18/19 17:20 Carbon Dioxide 17.3 mmol/L (21-32) L 08/18/19 17:20 BUN 41 mg/dL (7-18) H 08/18/19 17:20 Creatinine 4.46 mg/dL (0.55-1.02) H 08/18/19 17:20 Est GFR (MDRD) Af Amer 12 (>60) L 08/18/19 17:20 Est GFR (MDRD) Non-Af 10 (>60) L 08/18/19 17:20 Glucose 136 mg/dL (65-99) H 08/18/19 17:20 Calcium 8.5 mg/dL (8.5-10.1) 08/18/19 17:20 Corrected Calcium 9.8 mg/dL (8.5-10.1) 08/18/19 17:20 Total Bilirubin 0.20 mg/dL (0.2-1.0) 08/18/19 17:20 AST 26 Units/L (15-37) 08/18/19 17:20 ALT 19 Units/L (12-78) 08/18/19 17:20 Alkaline Phosphatase 136 Units/L (46-116) H 08/18/19 17:20 Total Protein 8.4 g/dL (6.4-8.2) H 08/18/19 17:20 Albumin 2.4 g/dL (3.4-5.0) L 08/18/19 17:20 Globulin 6.0 g/dL (2.5-4.5) H 08/18/19 17:20 Albumin/Globulin Ratio 0.4 Ratio (1.1-2.1) L 08/18/19 17:20 EKG [place]: Normal Rhythm: NSR Block: None Hypertrophy: None ST: Normal Opioid Opioid Risk Tool Age (José box if 16-45): No History of Preadolescent Sexual Abuse: No Total: 0 Total Score Risk Category: Low Risk Copyright: Rubens COHEN predicting aberrant behaviors Diagnosis Discharge Problem: Postoperative complication of skin involving drainage from surgical wound Acute kidney failure Qualifiers: Acute renal failure type: unspecified Qualified Code(s): N17.9 - Acute kidney failure, unspecified
[2019-08-18] MEDS ORDERED: NS 500 ML IV 500 ML IV ONE ×2 (21:10→21:20)
[2019-08-18] MEDS ORDERED: LR 1000 ML IV 1,000 ML IV ONE (21:21)
[2019-08-18] MEDS ORDERED: LR 1000 ML IV 1,000 ML IV SCH (22:00)
[2019-08-18] MEDS ORDERED: ZOFRAN TAB 4 MG PO PRN (22:21)
[2019-08-19 06:23] LABS: BASOPHILS % (AUTO) 0.4 % (0.2-1.0); EOSINOPHILS # (AUTO) 0.2 x10^3/uL (0.0-0.2); EOSINOPHILS % (AUTO) 1.9 % (0.9-2.9); HEMATOCRIT 25.8 % (36.0-47.0); HEMOGLOBIN 8.4 g/dL (12.0-16.0); LYMPHOCYTES # (AUTO) 2.7 X10^3/uL (1.3-2.9); LYMPHOCYTES % (AUTO) 27.3 % (21.0-51.0); MEAN CORPUSCULAR HEMOGLOBIN 28.8 pg (27.0-34.0); MEAN CORPUSCULAR HGB CONC 32.7 g/dL (33.0-35.0); MEAN CORPUSCULAR VOLUME 87.9 fL (80.0-100.0); MONOCYTES % (AUTO) 9.8 % (0.0-13.0); NEUTROPHILS % (AUTO) 60.6 % (42.0-75.0); PLATELET COUNT 282 X10^3/uL (150.0-450.0); RED BLOOD COUNT 2.93 X10^6/uL (3.5-5.4); RED CELL DISTRIBUTION WIDTH 13.6 % (11.6-16.5); WHITE BLOOD COUNT 9.9 X10^3/uL (3.6-10.0)
[2019-08-19 06:28] LABS: PREALBUMIN 13.7 mg/dL (18-35.7)
[2019-08-19 07:06] LABS: ALBUMIN 2.3 g/dL (3.4-5.0); CALCIUM 8.8 mg/dL (8.5-10.1); CARBON DIOXIDE 20.5 mmol/L (21-32); COR CA(FOR HYPOALB) 10.2 mg/dL (8.5-10.1); CREATININE 3.8 mg/dL (0.55-1.02); MAGNESIUM 1.8 mg/dL (1.7-2.9); PHOSPHORUS 4.4 mg/dL (2.6-4.7); TOTAL PROTEIN 8.2 g/dL (6.4-8.2)
[2019-08-19] MEDS ORDERED: LEXAPRO ONE (08:34)
[2019-08-19] MEDS ORDERED: PATIENT'S HOME MEDICATION (Escitalopram Oxalate 20 MG) PO SCH (09:00)
[2019-08-19] MEDS: PriLOSEC PO SCH (09:07)
[2019-08-19] MEDS: SYNTHROID 112 mcg TAB PO SCH (09:07)
[2019-08-19] MEDS: LEXAPRO PO SCH (09:07)
[2019-08-19] MEDS: ASPIRIN EC 81 MG PO SCH (09:07)
[2019-08-19] MEDS: NORVASC TAB 10 MG PO SCH (09:07)
[2019-08-19] MEDS: COREG TAB 12.5 MG PO SCH (09:07)
[2019-08-19] MEDS: NS 1000 ML 1,000 ML IV SCH ×2 (10:30→22:33)
[2019-08-19] MEDS ORDERED: DIPRIVAN VIAL ONE (10:54)
--- NOTE | 2019-08-19 13:23 | DR.H&P ---
H&P - History & Physical for Day of: H&P Date: 08/18/19 - Chief Complaint Chief Complaint: EXCESSIVE DRAINAGE FROM PERCUTANEOUS DRAIN, POSSIBLY DISLODGED - History of Present Illness History of Present Illness: IS A 89 YEAR OLD PATIENT OF OURS WHO PRESENTED TO THE ER WITH REPORTS OF DRAINAGE FROM A PERCUTANEOUS TUBE TO THE RIGHT SIDE OF HER ABDOMEN. PATIENT HAS A HISTORY OF PANCREATIC CANCER. TUBE WAS PLACED AT ANOTHER FACILITY IN APRIL OF THIS YEAR. HER FAMILY REPORTS THAT SHE FELL ABOUT A WEEK AGO AND HAS SINCE HAD EXCESSIVE LEAKING FROM THE SITE. DRAINAGE IS NOTED TO HAVE A FOUL ODOR. PMH INCLUDES HTN, DYSLIPIDEMIA, COPD, C HRONIC RENAL FAILURE, CHOLECYSTECTOMY, HYSTERECTOMY, AND SEVERAL GI ENDOSCOPIES. ON ARRIVAL TO THE ER, VITALS WERE 97.5-90-17-96%-138/67. LABS WERE OBTAINED. ABNORMAL LAB VALUES INCLUDE THE FOLLOWING: RBC 2.81, HGB 8.1, HCT 24.7, CHLORIDE 109, CARBON DIOXIDE 17.3, BUN 41, CREATININE 4.46, GLUCOSE 136, ALK PHOS 136, TOTAL PROTEIN 8.4, ALBUMIN 2.4. WE ADMITTED PATIENT FOR FURTHER EVALUATION AND TREATMENT OF PACREATIC CANCER, DISOLDGED PERCUTANEOUS TUBE, AND ANEMIA. CONSULTED WITH PATIENT AND PLANS TO TAKE HER TO THE OR FOR REPLACEMENT OF DRAIN TUBE. WE ARE IN AGREEMENT WITH PLANS. SHE WAS ADMITTED FOR FURTHER EVALUATION AND TREATMENT. SHE WAS STARTED ON NS AT 80 ML/HR, AND HER HOME MEDICATIOSN WERE RESUMED. SHE IS MEDICALLY STABLE AND CLEAR FOR SURGERY. OTHERWISE, WE WILL FOLLOW UP WITH AM LABS AND CONTINUE TO MONITOR HER AFTER SURGERY. - Past Medical History Past Medical History: Hypertension, Hypothyroidism, Anemia, COPD - Past Surgical History Surgical History: Appendectomy, Cholecystectomy, Hysterectomy - Family History Family Medical History: Hypertension - Social History Does patient currently use any type of tobacco product: No Have you used tobacco products in the last 12 months: No Type of Tobacco Use: None Does any household member use tobacco: No Alcohol Use: None Drug Use: None - Medications Home Medications: No Known Drug Allergies Allergy (Verified 04/29/19 16:57) CONTINUE taking the following medications clonazepam 1 mg PO HS 08/19/19 [History] docusate sodium [DOK] 100 mg PO BID 08/19/19 [History] - Review of Systems Constitutional: Weakness Eyes: No Symptoms Reported ENT: No Symptoms Reported Respiratory: No Symptoms Reported Cardiovascular: No Symptoms Reported Gastrointestinal: Abdominal Pain Genitourinary: No Symptoms Reported Musculoskeletal: No Symptoms Reported Skin: No Symptoms Reported Neurological: Weakness - Physical Exam Vital Signs: Temperature 98.2 F Pulse Rate [Right Brachial] 78 Pulse Rate 90 Respiratory Rate 18 Blood Pressure [Left Arm] 140/79 Blood Pressure [Right Arm] 128/70 Blood Pressure 138/67 O2 Sat by Pulse Oximetry 96 Oriented: Normal Eyes: Normal Ear: Normal Nose: Normal Throat: Normal Respiratory: Diminished Throughout Cardiovascular: Normal : Normal Auscultation: Bowel Sounds: Normal Palpation: Normal Tenderness: RLQ, Mild. negative: Rebound, Guarding, Rigidity Skin: Normal Musculoskeletal: Normal Psychiatric: Normal Mood Description: Calm Affect: Normal Speech Pattern: Clear - Allergies Allergies/Adverse Reactions: Allergies Allergy/AdvReac Type Severity Reaction Status Date / Time No Known Drug Allergies Allergy Verified 04/29/19 16:57
[2019-08-19] MEDS ORDERED: BETADINE SOLN ONE (14:38)
[2019-08-19] MEDS ORDERED: NS 1000 ML 1,000 ML ONE (15:00)
[2019-08-19] MEDS ORDERED: ZOSYN VIAL 3.375 GRAMS 3.375 G in NS 100 ML IV + SPIKE MINIBAG* 100 ML IV ONE (15:40)
--- NOTE | 2019-08-19 16:32 | OR.IMMED ---
Immediate Post-Op Note - Immediate Post-Op Note Pre-Op Diagnosis: dislodged PTC drainage catheter . 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 need for replacement . Post-Op Diagnosis: same Procedure: replacement of PTC drainage catheter under fluoroscopy . Surgeon/Rn Lvn: Chanel Estimated Blood Loss: none Drains: Catheter Complications: none Condition: Stable (to advance diet . IV ATB for 24 hours . D/C in am)
[2019-08-19] MEDS: ZOSYN VIAL 3.375 GRAMS 3.375 G in NS 100 ML IV + SPIKE MINIBAG* 100 ML IV SCH (21:01)
[2019-08-20 06:36] LABS: BASOPHILS % (AUTO) 0.1 % (0.2-1.0); EOSINOPHILS # (AUTO) 0.1 x10^3/uL (0.0-0.2); EOSINOPHILS % (AUTO) 0.9 % (0.9-2.9); HEMATOCRIT 26.8 % (36.0-47.0); HEMOGLOBIN 8.7 g/dL (12.0-16.0); LYMPHOCYTES # (AUTO) 1.3 X10^3/uL (1.3-2.9); LYMPHOCYTES % (AUTO) 12.1 % (21.0-51.0); MEAN CORPUSCULAR HEMOGLOBIN 28.5 pg (27.0-34.0); MEAN CORPUSCULAR HGB CONC 32.3 g/dL (33.0-35.0); MEAN CORPUSCULAR VOLUME 88.1 fL (80.0-100.0); MEAN PLATELET VOLUME 8.4 fL (7.4-11.0); MONOCYTES # (AUTO) 0.6 x10^3/uL (0.3-0.8); MONOCYTES % (AUTO) 5.3 % (0.0-13.0); NEUTROPHILS # (AUTO) 8.8 x10^3/uL (2.2-4.8); NEUTROPHILS % (AUTO) 81.6 % (42.0-75.0); PLATELET COUNT 298 X10^3/uL (150.0-450.0); RED BLOOD COUNT 3.04 X10^6/uL (3.5-5.4); RED CELL DISTRIBUTION WIDTH 13.6 % (11.6-16.5); WHITE BLOOD COUNT 10.7 X10^3/uL (3.6-10.0)
[2019-08-20 06:48] LABS: ALANINE AMINOTRANSFERASE 19 Units/L (12-78); ALBUMIN 2.3 g/dL (3.4-5.0); ALKALINE PHOSPHATASE 126 Units/L (46-116); ASPARTATE AMINO TRANSFERASE 22 Units/L (15-37); BLOOD UREA NITROGEN 33 mg/dL (7-18); CALCIUM 8.5 mg/dL (8.5-10.1); CARBON DIOXIDE 18.2 mmol/L (21-32); CHLORIDE 113 mmol/L (98-107); COR CA(FOR HYPOALB) 9.9 mg/dL (8.5-10.1); CREATININE 3.45 mg/dL (0.55-1.02); SODIUM 143 mmol/L (136-145); TOTAL PROTEIN 8.1 g/dL (6.4-8.2); eGFR NON BLACK RACES 13 (>60)
--- NOTE | 2019-08-20 07:56 | DR.PROGNOT ---
Hospital Progress Notes - Progress Note for Day of: Progress Note Date: 08/20/19 - Chief Complaint Chief Complaint: no abdominal pain , no fever . drainage catheter is working with large amount of bile in the drainage bag . LFT and Bilirubin are normal . - Past Medical Family Social History Past Med/Fam/Surg Hx: No changes since H&P Allergies: Allergies No Known Drug Allergies Allergy (Verified 04/29/19 16:57) - Vital Signs Vital Signs: Temperature 98.9 F Pulse Rate [Right Brachial] 80 Pulse Rate 90 Respiratory Rate 20 Blood Pressure [Left Arm] 134/61 Blood Pressure [Right Arm] 147/73 Blood Pressure 138/67 O2 Sat by Pulse Oximetry 99 - Physical Exam Oriented: Normal Eyes: Normal Ear: Normal Nose: Normal Throat: Normal Cardiovascular: Normal : Normal GI:Auscultation: Normal GI:Palpation: Normal GI: Tenderness: RLQ (soft , flat nontender abdomen . . BS+), Mild. negative: Rebound, Guarding, Rigidity Skin: Normal Musculoskeletal: Normal Psychiatric: Normal Mood Description: Calm Affect: Normal Speech Pattern: Clear, Appropriate - Laboratory and Diagnostics Result Diagrams: 08/20/19 05:25 08/20/19 05:25 Labs: 08/18/19 17:15 Abdomen Gram Stain - Final 08/18/19 17:15 Abdomen Wound Culture - Preliminary 08/19/19 15:15 Abdomen Gram Stain - Final Laboratory WBC 10.7 X10^3/uL (3.6-10.0) H 08/20/19 05:25 RBC 3.04 X10^6/uL (3.5-5.4) L 08/20/19 05:25 Hgb 8.7 g/dL (12.0-16.0) L 08/20/19 05:25 Hct 26.8 % (36.0-47.0) L 08/20/19 05:25 MCV 88.1 fL (80.0-100.0) 08/20/19 05:25 MCH 28.5 pg (27.0-34.0) 08/20/19 05:25 MCHC 32.3 g/dL (33.0-35.0) L 08/20/19 05:25 RDW 13.6 % (11.6-16.5) 08/20/19 05:25 Plt Count 298 X10^3/uL (150.0-450.0) 08/20/19 05:25 MPV 8.4 fL (7.4-11.0) 08/20/19 05:25 Neut % (Auto) 81.6 % (42.0-75.0) H 08/20/19 05:25 Lymph % (Auto) 12.1 % (21.0-51.0) L 08/20/19 05:25 [place] % (Auto) 5.3 % (0.0-13.0) 08/20/19 05:25 Eos % (Auto) 0.9 % (0.9-2.9) 08/20/19 05:25 Baso % (Auto) 0.1 % (0.2-1.0) L 08/20/19 05:25 Neut # (Auto) 8.8 x10^3/uL (2.2-4.8) H 08/20/19 05:25 Lymph # (Auto) 1.3 X10^3/uL (1.3-2.9) 08/20/19 05:25 [place] # (Auto) 0.6 x10^3/uL (0.3-0.8) 08/20/19 05:25 Eos # (Auto) 0.1 x10^3/uL (0.0-0.2) 08/20/19 05:25 Baso # (Auto) 0.0 X10^3/uL (0.0-0.1) 08/20/19 05:25 Absolute Nucleated RBC 0.0 /100WBC 08/20/19 05:25 Sodium 143 mmol/L (136-145) 08/20/19 05:25 Corrected Sodium TNP 08/20/19 05:25 Potassium 4.5 mmol/L (3.5-5.1) 08/20/19 05:25 Chloride 113 mmol/L (98-107) H 08/20/19 05:25 Carbon Dioxide 18.2 mmol/L (21-32) L 08/20/19 05:25 BUN 33 mg/dL (7-18) H 08/20/19 05:25 Creatinine 3.45 mg/dL (0.55-1.02) H 08/20/19 05:25 Est GFR (MDRD) Af Amer 16 (>60) L 08/20/19 05:25 Est GFR (MDRD) Non-Af 13 (>60) L 08/20/19 05:25 Glucose 106 mg/dL (65-99) H 08/20/19 05:25 Calcium 8.5 mg/dL (8.5-10.1) 08/20/19 05:25 Corrected Calcium 9.9 mg/dL (8.5-10.1) 08/20/19 05:25 Phosphorus 4.4 mg/dL (2.6-4.7) 08/19/19 06:00 Magnesium 1.8 mg/dL (1.7-2.9) 08/19/19 06:00 Total Bilirubin 0.40 mg/dL (0.2-1.0) 08/20/19 05:25 AST 22 Units/L (15-37) 08/20/19 05:25 ALT 19 Units/L (12-78) 08/20/19 05:25 Alkaline Phosphatase 126 Units/L (46-116) H 08/20/19 05:25 Total Protein 8.1 g/dL (6.4-8.2) 08/20/19 05:25 Albumin 2.3 g/dL (3.4-5.0) L 08/20/19 05:25 Globulin 5.8 g/dL (2.5-4.5) H 08/20/19 05:25 Albumin/Globulin Ratio 0.4 Ratio (1.1-2.1) L 08/20/19 05:25 Prealbumin 13.7 mg/dL (18-35.7) L 08/19/19 06:00 - Assessment and Plan 1: s/p replacement of PTC drainage catheter . Pt could be discharged and will follow next week and PRN . - Problem Patient Problems: Patient Problems Acute kidney failure (Acute) N17.9 Postoperative complication of skin involving drainage from surgical wound (Acute) L76.82
[2019-08-20] MEDS ORDERED: LEXAPRO ONE (10:59)
[2019-08-20] MEDS: ASPIRIN EC 81 MG PO SCH (11:22)
[2019-08-20] MEDS: NORVASC TAB 10 MG PO SCH (11:23)
[2019-08-20] MEDS: COREG TAB 12.5 MG PO SCH (11:24)
[2019-08-20] MEDS: SYNTHROID 112 mcg TAB PO SCH (11:24)
[2019-08-20] MEDS: LEXAPRO PO SCH (11:25)
[2019-08-20] MEDS: PriLOSEC PO SCH (11:25)
[2019-08-20] MEDS: ZOSYN VIAL 3.375 GRAMS 3.375 G in NS 100 ML IV + SPIKE MINIBAG* 100 ML IV SCH ×2 (11:25→20:13)
[2019-08-20] MEDS: NS 1000 ML 1,000 ML IV SCH (14:11)
[2019-08-21] MEDS: NS 1000 ML 1,000 ML IV SCH (04:11)
[2019-08-21 05:59] LABS: BASOPHILS % (AUTO) 0.3 % (0.2-1.0); EOSINOPHILS # (AUTO) 0.3 x10^3/uL (0.0-0.2); EOSINOPHILS % (AUTO) 3.3 % (0.9-2.9); HEMATOCRIT 26.2 % (36.0-47.0); HEMOGLOBIN 8.7 g/dL (12.0-16.0); LYMPHOCYTES # (AUTO) 2.1 X10^3/uL (1.3-2.9); LYMPHOCYTES % (AUTO) 24.1 % (21.0-51.0); MEAN CORPUSCULAR HEMOGLOBIN 29.3 pg (27.0-34.0); MEAN CORPUSCULAR HGB CONC 33.1 g/dL (33.0-35.0); MEAN CORPUSCULAR VOLUME 88.6 fL (80.0-100.0); MEAN PLATELET VOLUME 7.7 fL (7.4-11.0); MONOCYTES # (AUTO) 0.8 x10^3/uL (0.3-0.8); MONOCYTES % (AUTO) 8.9 % (0.0-13.0); NEUTROPHILS # (AUTO) 5.6 x10^3/uL (2.2-4.8); NEUTROPHILS % (AUTO) 63.4 % (42.0-75.0); PLATELET COUNT 309 X10^3/uL (150.0-450.0); RED BLOOD COUNT 2.96 X10^6/uL (3.5-5.4); RED CELL DISTRIBUTION WIDTH 13.7 % (11.6-16.5); WHITE BLOOD COUNT 8.9 X10^3/uL (3.6-10.0)
--- NOTE | 2019-08-21 06:02 | RAD ---
STUDY: CHEST, 1 VIEWCOMPARISON: June 15, 2019HISTORY: SOBFINDINGS:Cardiomediastinal contour is stable. Persistent right lower lung zone airspace disease is noted. Overall there is slight improved aeration of the lungs bilaterally suggesting decrease in amount of pulmonary edema. No left-sided pleural effusion is seen. No evidence of pneumothorax.IMPRESSION:Persistent right lower lung zone airspace disease is seen with interval decrease in the amount of interstitial lung markings suggesting decreasing pulmonary edema.Electronically signed by: Nathan Gunter (Aug 21, 2019 06:01:12)
[2019-08-21 06:13] LABS: ALANINE AMINOTRANSFERASE 18 Units/L (12-78); ALBUMIN 2.2 g/dL (3.4-5.0); ALKALINE PHOSPHATASE 118 Units/L (46-116); ASPARTATE AMINO TRANSFERASE 23 Units/L (15-37); BLOOD UREA NITROGEN 29 mg/dL (7-18); CALCIUM 8.4 mg/dL (8.5-10.1); CARBON DIOXIDE 19.4 mmol/L (21-32); CHLORIDE 114 mmol/L (98-107); COR CA(FOR HYPOALB) 9.8 mg/dL (8.5-10.1); SODIUM 145 mmol/L (136-145); TOTAL PROTEIN 8.1 g/dL (6.4-8.2); eGFR NON BLACK RACES 15 (>60)
[2019-08-21] MEDS ORDERED: LEXAPRO ONE (08:48)
[2019-08-21] MEDS: LEXAPRO PO SCH (09:20)
[2019-08-21] MEDS: NORVASC TAB 10 MG PO SCH (09:21)
[2019-08-21] MEDS: SYNTHROID 112 mcg TAB PO SCH (09:21)
[2019-08-21] MEDS: ASPIRIN EC 81 MG PO SCH (09:21)
[2019-08-21] MEDS: PriLOSEC PO SCH (09:21)
[2019-08-21] MEDS: COREG TAB 12.5 MG PO SCH (09:22)
[2019-08-21 09:58] VITALS: BP 125/61
== END 2019-08-21 10:25 | disposition home or self-care (01) ==
LOC: MED/SURG 16:51 → ER 16:51 → MED/SURG 22:56
PROVIDERS: ADMIT Internal Medicine; ATTEND Internal Medicine
CPT/HCPCS: 36415; 71010; 71045; 76000; 80053; 83735; 84100; 84134; 85025; 87070; 87075; 87077; 87186; 87205; 96365; 96367; 97110; 97162; 97166; 99100; 99284; A4222; G0378; J2543; J2704; J7030; J7040; J7050; J7120